=== PATIENT | male | born 1955 | race Caucasian/White ===

== ENCOUNTER 2022-02-05 15:03 | Inpatient (IN) ==
--- NOTE | 2022-02-05 15:14 | Emergency Department Note ---
Impression & Plan Intertrochanteric fracture of femur, Paroxysmal atrial fibrillation, CKD (chronic kidney disease), stage III ED Provider Note NAME: RADHA LLANES AGE: 66 SEX: M : 1955 ARRIVES VIA: Ambulance INFORMANT: Patient, ED PROVIDER(S): Peter Srivastava MD Chief Complaint: Fall, hip pain HPI: Patient presents after a fall and associated right hip pain from the fall. Patient states that he was bowling about 5 lanes and when he used his right foot has a plantar foot he just stopped all of a sudden instead of sliding slightly after his bowl and subsequently fell to the floor primarily striking his chest and his right hip. Patient is on Eliquis. Patient is a prior history of some esophageal cancer status post chemoradiation and surgery and the surgery was completed back in 2018. Patient states this is currently in remission. The patient drinks a couple beers a week and still smokes. Patient denies any cu rrent chest pain shortness of breath head or neck pain. The patient denies any numbness or weakness. The patient has had difficulty with moving his right leg and does have pain with doing so states is well localized to the proximal femur hip area. Patient was unable to walk. Patient did not receive any pain medication in route. ROS: See HPI for pertinent positives and negatives. A total of 10 systems were reviewed and otherwise negative. Past medical history: See below Surgical history: See below Social history: See below Physical Exam: GENERAL: NAD, wearing glasses, wearing a mask, non-toxic. EYE EXAM: Normal conjunctiva. PERRL, no anisocoria and EOM's grossly intact w/o pain. [OROPHARYNX: Moist mucus membranes. Edentulous maxilla. NECK: Supple, no nuchal rigidity, no adenopathy, non-tender. No signs of meningismus. LUNGS: Clear to auscultation. Normal chest wall mechanics. HEART: NSR, no MRG. ABDOMEN: Abdomen soft, non-tender, normo-active bowel sounds, no masses, no rebo und or guarding. BACK: No CVA TTP. SKIN: No rashes and no bruising. UPPER EXTREMITIES: Upper extremities are grossly normal. No TTP. LOWER EXTREMITIES: Discomfort with trying to raise the right lower extremity over the proximal anterior and lateral hip area, slightly shortened right lower extremity, neurovascular tact distally to DP, SP, tibialis nerves in the foot and with normal sensation. Good DP pulse. NEURO EXAM: A&O x3, cranial nerves II-XII grossly intact, normal speech, moves all 4 extremities but with decreased range of motion right lower extremity secondary to pain Differential diagnoses: Fracture, subluxation, dislocation, contusion, ligamentous injury, neurovascular, compartment syndrome, rhabdomyolysis, as well as other pathologies. Course: Patient was seen and evaluated the bedside. Full history physical exam was performed. EKG interpreted by me Sinus, rate 68, normal intervals, left axis deviation, no obvious ST elevations. Imaging Studies: See Below Cardiac monitoring: An order was placed for continuous cardiac monitoring. The monitor shows a rate of 72 with sinus rhythm. MDM: Patient was seen due to concern for fall and hip pain. Blood work was completed along with a right hip x-ray and CT of the head as the patient does take Eliquis given the fall. The patient has a white count that is normal with mild anemia with a hemoglobin 11.9. Mild thrombocytosis at 430. Kidney function with a creat of 1.5 CKD stage III. Urinalysis does not show any evidence of obvious infection. Covid negative. Patient's right hip does show an intertrochanteric fracture. I did speak the on-call orthopedist Dr. Royal. Patient will need a holiday from his [facility] prior to surgery per Dr. Royal and may consider surgery or Friday. I did speak with the on-call hospitalist TREE Arceo and the patient was admitted by Dr. Jean. CT of the head is negative. Past Med/Surg History Medical History BPH (benign prostatic hyperplasia) CKD (chronic kidney disease), stage III Dyslipidemia Esophageal cancer S/p chemo, radiation, esophagectomy HTN (hypertension) Paroxysmal atrial fibrillation Surgical History H/O esophagectomy History of bladder surgery Bladder tumor removed S/P repair of paraesophageal hernia Family History Mother Hypertension Lung cancer Sister Hypertension Social History Smoking Status: Current every day smoker Hx Alcohol Use: Yes Alcohol Intake Frequency: 2-3 x/Week Preferred Language: South Korean Feels Safe at Home: Yes Allergies Allergies Allergy/AdvReac Type Severity Reaction Status Date / Time No Known Drug Allergies Allergy ` Verified 02/05/22 17:27 Home Meds Home Medications Medication Instructions Recorded Confirmed amlodipine 2.5 mg tablet 2.5 mg PO DAILY 02/05/22 02/05/22 apixaban 2.5 mg tablet (Eliquis) 2.5 mg PO BID 02/05/22 02/05/22 diltiazem HCl 240 mg capsule,24 240 mg PO DAILY 02/05/22 02/05/22 hr,extended release (Tiadylt ER) lactobacillus combination no.4 3 0 mmu cells PO TID 02/05/22 02/05/22 billion cell capsule (Probiotic) qafskjds-clu-qwqsu acid 300 1 tab PO DAILY 02/05/22 02/05/22 mcg-lycopene 600 mcg-lutein 300 mcg tablet (Men 50 Plus Multivitamin) ondansetron HCl 4 mg tablet 4 mg PO Q8 PRN 02/05/22 02/05/22 saw palmetto 1,000 mg capsule 1,000 mg PO DAILY 02/05/22 02/05/22 sildenafil 100 mg tablet 100 mg PO DIRECTED PRN 02/05/22 02/05/22 Results & Data (ED) Vital Signs Vital Signs - 24 hr 02/05/22 14:56 Temperature 36.6 C Temperature Source Oral Pulse Rate 68 Pulse Rhythm Regular Pulse Strength Normal Respiratory Rate 18 Respiratory Effort / Characteristics Non-Labored Respiratory Depth Normal Respiratory Pattern Regular Blood Pressure 113/76 Blood Pressure Mean 88 Blood Pressure Position Lying Pulse Oximetry 98 Oxygen Delivery Method Room Air Sepsis Recent Fever Within 48 Hours No Sepsis New/Unexplained Change in Mental Status No Sepsis Action Taken by Nursing No Action Required Home Medications Current Medication List: was personally reviewed by me Laboratory Data Attestation: I reviewed the patient's lab results. Result diagrams: 02/05/22 15:30 02/05/22 15:30 Lab Results 02/05/22 02/05/22 02/05/22 Range/Units 15:30 15:30 15:30 WBC 9.68 (4.8-10.8) K/uL RBC 4.29 L (4.7-6.1) M/uL Hgb 11.9 L (14.0-18.0) g/dL Hct 36.4 L (42-52) % MCV 84.8 (80-100) fL MCH 27.7 (25-34) pg MCHC 32.7 (32-36) g/dL RDW Std Deviation 52.5 H (36.4-46.3) fL RDW Coeff of Lucita 17.2 H (11.5-14.5) % Plt Count 430 H (130-400) K/uL MPV 9.1 (7.4-10.4) fL Immature Gran % (Auto) 0.3 % Neut % (Auto) 67.7 % Lymph % (Auto) 16.7 % Wilson % (Auto) 10.5 % Eos % (Auto) 4.1 % Baso % (Auto) 0.7 % Neut # (Auto) 6.54 H (1.4-6.5) K/uL Lymph # (Auto) 1.62 (1.2-3.4) K/uL Wilson # (Auto) 1.02 H (0.11-0.59) K/uL Eos # (Auto) 0.40 (0-0.5) K/uL Baso # (Auto) 0.07 (0-0.2) K/uL Immature Gran # (Auto) 0.03 H (0.00-0.02) K/uL PT 10.8 (9.0-12.0) Seconds INR 1.0 (0.9-1.1) APTT 23.5 (21.0-31.0) Seconds PTT Ratio 0.9 Sodium 138 (136-145) mmol/L Potassium 3.6 (3.5-5.1) mmol/L Chloride 103 (98-107) mmol/L Carbon Dioxide 27 (21-32) mmol/L Anion Gap 8 (3-11) BUN 32 H (6-23) mg/dl Creatinine 1.56 H (0.6-1.4) mg/dl Est Cr Clr Drug Dosing 44.9 ml/min Est GFR ( Amer) 52.5 ml/min Est GFR (Non-Af Amer) 45.3 ml/min BUN/Creatinine Ratio 20.5 H (10-20) Glucose 94 (70-99(Fasting)) mg/dl Calcium 9.5 (8.5-10.1) mg/dl Total Bilirubin 0.5 (0.2-1.0) mg/dl AST 18 (13-39) U/L ALT 13 (7-52) U/L Alkaline Phosphatase 81 (34-104) U/L Total Protein 7.5 (6.0-8.3) gm/dl Albumin 4.3 (3.4-5.0) gm/dl Globulin 3.2 (2.5-4.0) gm/dl Albumin/Globulin Ratio 1.3 (0.9-2) Administered Medications Senna/Docusate Sodium (Docusate Sodium/Senna 50/8.6mg Tab) 2 tab PO HS JOSEPH Stop: 03/07/22 20:59 Last Admin: 02/05/22 22:01 Dose: 2 tab Documented by: [id number] Discontinued Medications Morphine Sulfate (Morphine Sulfate 2 Mg/Ml Carp) 2 mg IV Q1H PRN PRN Reason: Moderate Pain (Rating 3,4,5,6) Stop: 02/19/22 15:20 Last Admin: 02/05/22 17:20 Dose: 2 mg Documented by: [id number] Admin: 02/05/22 15:46 Dose: 2 mg Documented by: [id number] Oxycodone/Acetaminophen (Oxycodone/Acetaminophen 5mg/325mg Tab) 1 tab PO NOW STA Stop: 02/05/22 20:35 Last Admin: 02/05/22 21:10 Dose: 1 tab Documented by: [id number] Imaging Data Radiologist's Impression: Femur X-Ray 02/05/22 15:21 XR hip RT 2V w pelvis, XR femur RT 2V routine CLINICAL HISTORY: fall, short, immobile, RLE TECHNIQUE: 2 views of the right hip, 2 views of the right femur, and single frontal view of the pelvis were obtained. Comparison: None available at the time of this dictation. FINDINGS: There is an intratrochanteric fracture of the right femur which is minimally apex lateral angulated. The alignment is anatomic. Degenerative changes are seen in the hip joint. Soft tissue swelling is seen. Vascular calcifications are noted. IMPRESSION: Intratrochanteric fracture of the right femur. ACT 112: Negative or not required by law. Electronically signed by: Curly Crespo M.D. 02/05/2022 4:[address] 02/05/22 15:[address] DOSE: 1228.53 mGy.cm HISTORY: fall on eliquis TECHNIQUE: Multiaxial CT images of the head were performed without the use of intravenous contrast. Automated exposure control was utilized for this study. A dose lowering technique was utilized adhering to the principles of ALARA. Comparison: None. Findings: Trace fluid level within the left sphenoid sinus. The mastoid air cells are clear. The calvarium and skull base are intact. There is no mass, hematoma, midline shift, acute infarct. White matter hypodensity is nonspecific but suggestive of microvascular ischemic change. The ventricles and sulci demonstrate mild age-related involutional changes. Impression: 1. No acute intracranial abnormality. 2. Trace fluid level within the left sphenoid sinus. ACT 112: Negative or not required by law. Electronically signed by: Hakeem Talley M.D. 02/05/2022 4:56 PM Hip/Pelvis X-Ray 02/05/22 15:21 XR hip RT 2V w pelvis, XR femur RT 2V routine CLINICAL HISTORY: fall, short, immobile, RLE TECHNIQUE: 2 views of the right hip, 2 views of the right femur, and single frontal view of the pelvis were obtained. Comparison: None available at the time of this dictation. FINDINGS: There is an intratrochanteric fracture of the right femur which is minimally apex lateral angulated. The alignment is anatomic. Degenerative changes are seen in the hip joint. Soft tissue swelling is seen. Vascular calcifications are noted. IMPRESSION: Intratrochanteric fracture of the right femur. ACT 112: Negative or not required by law. Electronically signed by: Curly Crespo M.D. 02/05/2022 4:23 PM Discharge Plan Visit Data Chief Complaint: Hip Pain ED Provider: Peter Srivastava Discharge Problem: Intertrochanteric fracture of femur, Paroxysmal atrial fibrillation, CKD (chronic kidney disease), stage III Patient Disposition: Admitted As Inpatient Discharge Instructions Interventions: ED Discharge Assessment Last Done: 02/05/22 20:41
[2022-02-05 15:41] LABS: Basophils # (auto) 0.07 K/uL (0-0.2); Basophils % (auto) 0.7 %; Eosinophils % (auto) 4.1 %; Hematocrit (blood only) 36.4 % (42-52); Hemoglobin 11.9 g/dL (14.0-18.0); Immature Granulocytes # (auto) 0.03 K/uL (0.00-0.02); Immature Granulocytes % (auto) 0.3 %; Lymphocytes # (auto) 1.62 K/uL (1.2-3.4); Lymphocytes % (auto) 16.7 %; Mean Corpuscular Hemoglobin 27.7 pg (25-34); Mean Corpuscular Hgb Conc 32.7 g/dL (32-36); Mean Corpuscular Volume 84.8 fL (80-100); Mean Platelet Volume 9.1 fL (7.4-10.4); Monocytes # (auto) 1.02 K/uL (0.11-0.59); Monocytes % (auto) 10.5 %; Neutrophils # (auto) 6.54 K/uL (1.4-6.5); Neutrophils % (auto) 67.7 %; Platelet Count 430 K/uL (130-400); RDW Coefficient of Variation 17.2 % (11.5-14.5); RDW Standard Deviation 52.5 fL (36.4-46.3); Red Blood Count 4.29 M/uL (4.7-6.1); White Blood Count 9.68 K/uL (4.8-10.8)
[2022-02-05] MEDS: MoRPHine SULFATE 2 MG/ML CARP IV PRN ×2 (15:46→17:20)
[2022-02-05 16:00] LABS: Partial Thromboplastin Ratio 0.9; Partial Thromboplastin Time 23.5 Seconds (21.0-31.0); Prothrombin Time 10.8 Seconds (9.0-12.0)
[2022-02-05 16:02] LABS: Albumin Globulin Ratio 1.3 (0.9-2); Albumin Level 4.3 gm/dl (3.4-5.0); BUN Creatinine Ratio 20.5 (10-20); Bilirubin,Total 0.5 mg/dl (0.2-1.0); Calcium 9.5 mg/dl (8.5-10.1); Creatinine Clr Calc Pharmacy 44.9 ml/min; Est GFR (African American) 52.5 ml/min; Est GFR (Non-African American) 45.3 ml/min; Globulin 3.2 gm/dl (2.5-4.0); Potassium 3.6 mmol/L (3.5-5.1); Total Protein 7.5 gm/dl (6.0-8.3)
--- NOTE | 2022-02-05 16:17 | Electrocardiogram Report ---
Test Reason : Blood Pressure : / mmHG Vent. Rate : 068 BPM Atrial Rate : 068 BPM P-R Int : 146 ms QRS Dur : 090 ms QT Int : 414 ms P-R-T Axes : 052 -44 048 degrees QTc Int : 440 ms Poor data quality, interpretation may be adversely affected Sinus rhythm with Premature supraventricular complexes Left axis deviation Incomplete right bundle branch block Abnormal ECG When compared with ECG of 01-NOV-2013 14:03, Premature supraventricular complexes are now Present Confirmed by Drew Davenport ([id number]) on 02/05/2022 4:16:42 PM Referred By: REFERRED SELF Confirmed By:Simeon Davenport
--- NOTE | 2022-02-05 16:24 | XRay Report ---
XR hip RT 2V w pelvis, XR femur RT 2V routine CLINICAL HISTORY: fall, short, immobile, RLE TECHNIQUE: 2 views of the right hip, 2 views of the right femur, and single frontal view of the pelvi s were obtained. Comparison: None available at the time of this dictation. FINDINGS: There is an intratrochanteric fracture of the right femur which is minimally apex lateral angulated. The alignment is anatomic. Degenerative changes are seen in the hip joint. Soft tissue swelling is s een. Vascular calcifications are noted. IMPRESSION: Intratrochanteric fracture of the right femur. ACT 112: Negative or not required by law. Electronically signed by: Curly Crespo M.D. 02/05/2022 4:23 PM
--- NOTE | 2022-02-05 16:57 | CT Scan Report ---
HEAD CT NONCONTRAST CT DOSE: 1228.53 mGy.cm HISTORY: fall on eliquis TECHNIQUE: Multiaxial CT images of the head were performed without the use of intravenous contrast. A utomated exposure control was utilized for this study. A dose lowering technique was utilized adheri ng to the principles of ALARA. Comparison: None. Findings: Trace fluid level within the left sphenoid sinus. The mastoid air cells are clear. The calv arium and skull base are intact. There is no mass, hematoma, midline shift, acute infarct. White james er hypodensity is nonspecific but suggestive of microvascular ischemic change. The ventricles and sul ci demonstrate mild age-related involutional changes. Impression: 1. No acute intracranial abnormality. 2. Trace fluid level within the left sphenoid sinus. ACT 112: Negative or not required by law. Electronically signed by: Hakeem Talley M.D. 02/05/2022 4:56 PM
[2022-02-05 17:35] LABS: Appearance Urine Clear (Clear); Bilirubin Urine Negative (Negative); Blood Urine Negative (Negative); Color Urine Yellow; Glucose Urine UA Negative (Negative); Ketones Urine Negative (Negative); Leukocyte Esterase Urine Negative (Negative); Nitrite Urine Negative (Negative); Protein Urine Negative (Negative); Specific Gravity Urine 1.015 (1.000-1.030); Urobilinogen Urine Negative (Negative)
--- NOTE | 2022-02-05 19:15 | History & Physical Report ---
Date of Service February 05, 2022 Assessment & Plan (1) Intertrochanteric fracture of femur: Plan: Admit to [facility] Patient presenting after mechanical fall while bowling X-ray shows Intratrochanteric fracture of the right femur Ortho consult - due to patient being on Eliquis, tentatively planning for surgery in 02/07 Due to reports of shortness of breath "associated with atrial fibrillation" per patient, will obtain cardiology consult for preop evaluation EKG shows NSR with incomplete RBBB Echo 07/2020-EF 55 to 59%, mild aortic valve regurgitation, mild mitral regurgitation, mild tricuspid regurgitation. Stress test 2009 negative for inducible ischemia. CXR reviewed (2) Paroxysmal atrial fibrillation: Plan: Currently in NSR Rate controlled on diltiazem, anticoagulated on Eliquis. Hold Eliquis due to orthopedic surgery, resume at the discretion of orthopedics (3) HTN (hypertension): Plan: BP controlled, continue amlodipine and diltiazem (4) CKD (chronic kidney disease), stage III: Plan: Baseline creatinine runs in the high 1s Creatinine 1.56 today Monitor renal functions (5) DVT prophylaxis: Plan: SCDs due to upcoming surgery History of Present Illness Chief Complaint: Right hip pain Primary Care Provider: Padilla Loja DO 66-year-old male with PMH esophageal cancer s/p chemo, radiation, esophagectomy, paroxysmal atrial fibrillation anticoagulated on Eliquis, HTN, CKD stage III, BPH, GERD, and other problems to below who presents to the ED for evaluation of right hip pain after sustaining a fall. Patient reports that he was bowling this afternoon when his right foot got stuck and he fell to the ground. Patient denies striking his head or any associated loss of consciousness. Patient reports that he has been generally feeling fairly well recently. Does note some intermittent episodes of shortness of breath which he attributes to his atrial fibrillation. Patient denies chest pain. No lightheadedness, dizziness, diaphoresis, syncopal events. Denies any other recent illness, fevers, chills. No abdominal pain, nausea, vomiting, diarrhea. Denies urinary symptoms. In the ED, patient was found to have Intratrochanteric fracture of the right femur. Labs are unremarkable/at patient's baseline, patrick ent is hemodynamically stable. Patient received IV morphine for pain control. Allergies Allergy/AdvReac Type Severity Reaction Status Date / Time No Known Drug Allergies Allergy ` Verified 02/05/22 17:27 Home Medications Medication Instructions Recorded Confirmed Type amlodipine 2.5 mg tablet 2.5 mg PO DAILY 02/05/22 02/05/22 History apixaban 2.5 mg tablet (Eliquis) 2.5 mg PO BID 02/05/22 02/05/22 History diltiazem HCl 240 mg capsule,24 240 mg PO DAILY 02/05/22 02/05/22 History hr,extended release (Tiadylt ER) lactobacillus combination no.4 3 0 mmu cells PO TID 02/05/22 02/05/22 History billion cell capsule (Probiotic) ffqiaohn-pai-skyvt acid 300 1 tab PO DAILY 02/05/22 02/05/22 History mcg-lycopene 600 mcg-lutein 300 mcg tablet (Men 50 Plus Multivitamin) ondansetron HCl 4 mg tablet 4 mg PO Q8 PRN 02/05/22 02/05/22 History saw palmetto 1,000 mg capsule 1,000 mg PO DAILY 02/05/22 02/05/22 History sildenafil 100 mg tablet 100 mg PO DIRECTED PRN 02/05/22 02/05/22 History Past Med/Surg History Medical History BPH (benign prostatic hyperplasia) CKD (chronic kidney disease), stage III Dyslipidemia Esophageal cancer S/p chemo, radiation, esophagectomy HTN (hypertension) Paroxysmal atrial fibrillation Surgical History H/O esophagectomy History of bladder surgery Bladder tumor removed S/P repair of paraesophageal hernia Family History Mother Hypertension Lung cancer Sister Hypertension Social History Smoking Status: Current every day smoker Hx Alcohol Use: Yes Alcohol Intake Frequency: 2-3 x/Week Preferred Language: Swazi Feels Safe at Home: Yes Review of Systems Review of Systems: ROS per HPI, all other systems reviewed and negative Physical Exam Constitutional: + cachectic; no acute distress Eyes: PERRL, conjunctivae normal, anicteric sclerae ENMT: external ear and nose normal, oropharynx normal Respiratory: normal respiratory effort, lungs clear to auscultation Cardiovascular: Rate/Rhythm: regular rate and regular rhythm Vessels: normal peripheral pulses Extremities: no edema Gastrointestinal (Abdomen): normal bowel sounds, soft, nontender, no hepatosplenomegaly Musculoskeletal: Extremities: no cyanosis and no clubbing RLE shortened and externally rotated Skin: no rashes, warm and dry Neurologic: PERRL, EOMI, accommodation nl, no face palsy, no dysarthria Psychiatric: A+Ox3, euthymic affect Results & Data Results & Data ([facility]) Vital Signs (Past 12 Hours) Vital Signs Temp Pulse Pulse Resp BP BP Pulse Ox 02/05/22 16:56 70 18 134/77 99 02/05/22 14:56 36.6 C 68 18 113/76 98 Laboratory Results Short CBC 02/05/22 Range/Units 15:30 WBC 9.68 (4.8-10.8) K/uL Hgb 11.9 L (14.0-18.0) g/dL Hct 36.4 L (42-52) % Plt Count 430 H (130-400) K/uL BMP 02/05/22 15:30 Sodium 138 Potassium 3.6 Chloride 103 Carbon Dioxide 27 BUN 32 H Creatinine 1.56 H Glucose 94 Calcium 9.5 Liver Function 02/05/22 Range/Units 15:30 Total Bilirubin 0.5 (0.2-1.0) mg/dl AST 18 (13-39) U/L ALT 13 (7-52) U/L Alkaline Phosphatase 81 (34-104) U/L Albumin 4.3 (3.4-5.0) gm/dl Urine 02/05/22 Range/Units 17:00 Urine Color Yellow Urine Appearance Clear (Clear) Urine pH 6.0 (4.5-7.5) Ur Specific [place] 1.015 (1.000-1.030) Urine Protein Negative (Negative) Urine Glucose (UA) Negative (Negative) Diagnostic Findings Femur X-Ray 02/05/22 15:21 XR hip RT 2V w pelvis, XR femur RT 2V routine CLINICAL HISTORY: fall, short, immobile, RLE TECHNIQUE: 2 views of the right hip, 2 views of the right femur, and single frontal view of the pelvis were obtained. Comparison: None available at the time of this dictation. FINDINGS: There is an intratrochanteric fracture of the right femur which is minimally apex lateral angulated. The alignment is anatomic. Degenerative changes are seen in the hip joint. Soft tissue swelling is seen. Vascular calcifications are no carroll. IMPRESSION: Intratrochanteric fracture of the right femur. ACT 112: Negative or not required by law. Electronically signed by: Curly Crespo M.D. 02/05/2022 4:[address] 02/05/22 15:[address] DOSE: 1228.53 mGy.cm HISTORY: fall on eliquis TECHNIQUE: Multiaxial CT images of the head were performed without the use of intravenous contrast. Automated exposure control was utilized for this study. A dose lowering technique was utilized adhering to the principles of ALARA. Comparison: None. Findings: Trace fluid level within the left sphenoid sinus. The mastoid air cells are clear. The calvarium and skull base are intact. There is no mass, hematoma, midline shift, acute infarct. White matter hypodensity is nonspecific but suggestive of microvascular ischemic change. The ventricles and sulci demonstrate mild age-related involutional changes. Impression: 1. No acute intracranial abnormality. 2. Trace fluid level within the left sphenoid sinus. ACT 112: Negative or not required by law. Electronically signed by: Hakeem Talley M.D. 02/05/2022 4:56 PM Hip/Pelvis X-Ray 02/05/22 15:21 XR hip RT 2V w pelvis, XR femur RT 2V routine CLINICAL HISTORY: fall, short, immobile, RLE TECHNIQUE: 2 views of the right hip, 2 views of the right femur, and single frontal view of the pelvis were obtained. Comparison: None available at the time of this dictation. FINDINGS: There is an intratrochanteric fracture of the right femur which is minimally apex lateral angulated. The alignment is anatomic. Degenerative changes are seen in the hip joint. Soft tissue swelling is seen. Vascular calcifications are noted. IMPRESSION: Intratrochanteric fracture of the right femur. ACT 112: Negative or not required by law. Electronically signed by: Curly Crespo M.D. 02/05/2022 4:23 PM Code Status & VTE Plan VTE Prophylaxis Plan VTE Prophylaxis will be ordered: Yes Supervising Physician Co-Signing Physician Notes I have seen and examined the patient and have discussed the case with the provider above. I agree with the assessment and plan as stated. Please see separate attending addendum note. Ted, DO
[2022-02-05] MEDS ORDERED: oxyCODONE/ACETAMINOPHEN 5mg/325mg TAB PO STA (20:34)
--- NOTE | 2022-02-05 20:52 | Communication Note ---
Date of Service: February 05, 2022 ATTENDING ADDENDUM: 66 yo M presents with a R hip fracture s/p mechanical fall while bowling. He has a h/o esophageal cancer s/p surgery and XRT currently in remission but still smoking. He has paroxysmal atrial fibrillation on apixaban (should be dosed at 5mg BID instead of 2.5mg BID). He denies any chest pain in the last 6 months and reports a good functional status--bowls frequently and is able to climb a flight of stairs without issues typically. He does report some days where "it is an afib day" where he reports significant SOB with exertion, not able to walk 5 feet without becoming short of breath. He appears thin and underweight, however, weight has been stable for the past two years per record review. He currently reports that his pain is uncontrolled and I ordered a Percocet for him now. Physical exam reveals a thin man in NAD. He is mentating clearly and is having no increased respiratory distress. Cardiac auscultation reveals irregular rate and irregular rhythm. S1/2 heard. Lungs are clear to auscultation throughout. Abdomen is soft NTND. No peripheral edema. 2+DP pulses bilaterally. No sensation loss. BMP is normal with a creat of 1.56 which is at baseline. CBC reveals no leukocytosis and a mild anemia, 11.9/36.4, platelets mildly elevated to 430. UA is clear and covid screen is negative. CXR reveals no acute process. EKG with sinus rhythm with PVCs and an incomplete RBBB. 1. Right intertrochanteric fracture of femur: treat pain, NPO p MN, Ortho consult. Cardiology to see patient preoperatively with report of intermittent dyspnea on exertion. 2. PAF: he qualifies for the 5mg twice daily dose and this should be adjusted up at time of discharge. Currently held in light of upcoming operation. DO Ted
--- NOTE | 2022-02-05 20:53 | XRay Report ---
XR chest 1V portable HISTORY: Right hip fracture. Fall. Preop. COMPARISON: None. FINDINGS: No pneumothorax. Suture material within the right hilum and right midlung zone consistent w ith postoperative change. No evidence for pulmonary edema. The heart is borderline enlarged. Large re trocardiac density is nonspecific but favors a hiatus hernia. A few right basilar linear densities fa vor subsegmental atelectasis. No focal lung consolidations to suggest pneumonia. No evidence for pulm onary edema. Punctate calcified granuloma noted within the right upper lobe. Old, healed left-sided r ib fractures. IMPRESSION: 1. No acute process within the chest. 2. Large retrocardiac density favors a hiatus hernia. 3. Postoperative changes within the right lung. ACT 112: Negative or not required by law. Electronically signed by: Hakeem Talley M.D. 02/05/2022 8:50 PM
[2022-02-05] MEDS ORDERED: MAGNESIUM HYDROXIDE SUSP 30 ML UDC PO PRN (20:58)
[2022-02-05] MEDS ORDERED: NALOXONE HCL 0.4 MG/1 ML VIAL/CARP IV PRN (20:58)
[2022-02-05] MEDS ORDERED: bisacodyL 10 MG SUPP PR PRN (20:58)
[2022-02-05] MEDS ORDERED: ACETAMINOPHEN 325 MG TAB PO PRN (20:58)
[2022-02-05] MEDS ORDERED: oxyCODONE HCL IR 5 MG TAB (IMMEDIATE RELEASE) PO PRN (20:58)
[2022-02-05] MEDS: DOCUSATE SODIUM/SENNA 50/8.6MG TAB PO SCH (22:01)
[2022-02-06] MEDS ORDERED: ceFAZolin 2000MG 2,000 MG/15 ML SYR IV SCH (06:00)
[2022-02-06 07:43] LABS: Hematocrit (blood only) 35.3 % (42-52); Hemoglobin 11.6 g/dL (14.0-18.0); Mean Corpuscular Hemoglobin 27.7 pg (25-34); Mean Corpuscular Hgb Conc 32.9 g/dL (32-36); Mean Corpuscular Volume 84.2 fL (80-100); Mean Platelet Volume 8.7 fL (7.4-10.4); Platelet Count 437 K/uL (130-400); RDW Coefficient of Variation 17.2 % (11.5-14.5); RDW Standard Deviation 53.4 fL (36.4-46.3); Red Blood Count 4.19 M/uL (4.7-6.1); White Blood Count 11.79 K/uL (4.8-10.8)
[2022-02-06 08:03] LABS: BUN Creatinine Ratio 17.4 (10-20); Calcium 9.3 mg/dl (8.5-10.1); Creatinine Clr Calc Pharmacy 48.3 ml/min; Est GFR (African American) 71.4 ml/min; Est GFR (Non-African American) 61.6 ml/min
[2022-02-06] MEDS: amLODIPine BESYLATE 5 MG TAB PO SCH (08:15)
[2022-02-06] MEDS: dilTIAZem ER 120 MG CAPCR PO SCH (08:15)
[2022-02-06] MEDS: NICOTINE 21 MG/24 HR TDSY TD SCH (08:16)
--- NOTE | 2022-02-06 10:05 | Orthopedic Consultation ---
Date of Consultation February 06, 2022 Assessment & Plan (1) Intertrochanteric fracture of femur: Right intertrochanteric hip fracture. X-rays reviewed. I have discussed the case with Dr. Royal. Patient will require a right TFN. Patient is on Eliquis of which he states his last dose was yesterday morning. Creatinine was 1.5 yesterday and today is 1.2. I have discussed the case also with anesthesia. Tentatively, he will be at least 36 hours after his last Eliquis dose. We will put him on the operating room schedule for today. I will further discuss this with medicine service and unless they feel he is not stable for surgery, we will plan on doing the surgery today. Surgery has been discussed with the patient in detail. History of Present Illness Reason for Consultation: Right intertrochanteric hip fracture Attending Physician: Gianluca Ryan MD History of Present Illness 66-year-old male with PMH esophageal cancer s/p chemo, radiation, esophagectomy, paroxysmal atrial fibrillation anticoagulated on Eliquis, HTN, CKD stage III, BPH, GERD, who was brought to the emergency room after [place] a bowling alley. Patient states that he was bowling with friends. At the beginning of the first frame and the third game, the patient states that he went to roll the ball for his turn when his right foot got caught. He stumbled and fell onto his right side hitting his right lateral hip. He states he had immediate pain in the hip and groin and pain that radiated down into his knee. He was unable to ambulate well because of the pain. He denies hitting his head. He denies losing consciousness. There was no shortness of breath, chest pain, lightheadedness prior to or after the fall. He was brought to the emergency room where he was seen by the staff. X-rays were taken and was found that he had an intertrochanteric hip fracture of the right hip. He was admitted by the [facility] service and we have been asked to take care of his right hip fracture. Currently he is awake and alert and appears comfortable. He states his pain is controlled at rest however when he tries to move his right hip he has excruciating pain in the right hip and groin. He denies pain anywhere else at this time. Allergies Allergy/AdvReac Type Severity Reaction Status Date / Time No Known Drug Allergies Allergy ` Verified 02/05/22 17:27 Home Medications Medication Instructions Recorded Confirmed Type amlodipine 2.5 mg tablet 2.5 mg PO DAILY 02/05/22 02/05/22 History apixaban 2.5 mg tablet (Eliquis) 2.5 mg PO BID 02/05/22 02/05/22 History diltiazem HCl 240 mg capsule,24 240 mg PO DAILY 02/05/22 02/05/22 History hr,extended release (Tiadylt ER) lactobacillus combination no.4 3 0 mmu cells PO TID 02/05/22 02/05/22 History billion cell capsule (Probiotic) znfnwdyc-opj-prrmo acid 300 1 tab PO DAILY 02/05/22 02/05/22 History mcg-lycopene 600 mcg-lutein 300 mcg tablet (Men 50 Plus Multivitamin) ondansetron HCl 4 mg tablet 4 mg PO Q8 PRN 02/05/22 02/05/22 History saw palmetto 1,000 mg capsule 1,000 mg PO DAILY 02/05/22 02/05/22 History sildenafil 100 mg tablet 100 mg PO DIRECTED PRN 02/05/22 02/05/22 History Patient History Medical History BPH (benign prostatic hyperplasia) CKD (chronic kidney disease), stage III Dyslipidemia Esophageal cancer S/p chemo, radiation, esophagectomy HTN (hypertension) Paroxysmal atrial fibrillation Surgical History H/O esophagectomy History of bladder surgery Bladder tumor removed S/P repair of paraesophageal hernia Family History Mother Hypertension Lung cancer Sister Hypertension Social History Smoking Status: Current every day smoker Cigarettes Per Day: 10; Second Hand Exposure: No; Do You Dip or Chew Tobacco: No; Tobacco Cessation Education Requested by Patient: No Hx Alcohol Use: Yes Alcohol Intake Frequency: 2-3 x/Week Hx Substance Use: No Preferred Language: Thai Communication Ability: Effective Fishing Vessel Mate Required: No Beliefs That Will Affect Care: None Current Living Situation: Alone Other Information That Helps Us Care for You: No Feels Safe at Home: Yes Safety Concerns: Feels Safe At This Time Assistive Devices: Glasses Physical Exam Physical Exam: Patient is a 66-year-old white male. Alert and oriented x3. No acute distress. Pleasant and cooperative. On examination of his right lower extremity, it is shortened and externally rotated compared to the right. No range of motion is done at this time of the right hip or knee secondary to hip fracture. His knee is nontender on palpation. There is no effusion that I can see. He has good range of motion of his right ankle and toes. Sensation is intact. He is mildly tender on p alpation of the lateral hip at this time. Left lower extremity is unaffected and range of motion is within normal limits. Upper extremities are unaffected and range of motion of the shoulders, elbows, and wrists are within normal limits. Nontender. Distal pulses are equal laterally of the upper and lower extremities. There is no gross motor or sensory loss seen at this time. Results & Data ([facility]) Vital Signs (Past 12 Hours) Vital Signs Temp Pulse Resp BP Pulse Ox 02/06/22 07:53 36.9 C 86 16 165/87 H 93 Laboratory Results Laboratory Results WBC 11.79 K/uL (4.8-10.8) H 02/06/22 07:24 RBC 4.19 M/uL (4.7-6.1) L 02/06/22 07:24 Hgb 11.6 g/dL (14.0-18.0) L 02/06/22 07:24 Hct 35.3 % (42-52) L 02/06/22 07:24 MCV 84.2 fL (80-100) 02/06/22 07:24 MCH 27.7 pg (25-34) 02/06/22 07:24 MCHC 32.9 g/dL (32-36) 02/06/22 07:24 RDW Std Deviation 53.4 fL (36.4-46.3) H 02/06/22 07:24 RDW Coeff of Lucita 17.2 % (11.5-14.5) H 02/06/22 07:24 Plt Count 437 K/uL (130-400) H 02/06/22 07:24 MPV 8.7 fL (7.4-10.4) 02/06/22 07:24 Immature Gran % (Auto) 0.3 % 02/05/22 15:30 Neut % (Auto) 67.7 % 02/05/22 15:30 Lymph % (Auto) 16.7 % 02/05/22 15:30 [place] % (Auto) 10.5 % 02/05/22 15:30 Eos % (Auto) 4.1 % 02/05/22 15:30 Baso % (Auto) 0.7 % 02/05/22 15:30 Neut # (Auto) 6.54 K/uL (1.4-6.5) H 02/05/22 15:30 Lymph # (Auto) 1.62 K/uL (1.2-3.4) 02/05/22 15:30 [place] # (Auto) 1.02 K/uL (0.11-0.59) H 02/05/22 15:30 Eos # (Auto) 0.40 K/uL (0-0.5) 02/05/22 15:30 Baso # (Auto) 0.07 K/uL (0-0.2) 02/05/22 15:30 Immature Gran # (Auto) 0.03 K/uL (0.00-0.02) H 02/05/22 15:30 PT 10.8 Seconds (9.0-12.0) 02/05/22 15:30 INR 1.0 (0.9-1.1) 02/05/22 15:30 APTT 23.5 Seconds (21.0-31.0) 02/05/22 15:30 PTT Ratio 0.9 02/05/22 15:30 Sodium 136 mmol/L (136-145) 02/06/22 07:24 Potassium 4.0 mmol/L (3.5-5.1) 02/06/22 07:24 Chloride 102 mmol/L (98-107) 02/06/22 07:24 Carbon Dioxide 27 mmol/L (21-32) 02/06/22 07:24 Anion Gap 7 (3-11) 02/06/22 07:24 BUN 21 mg/dl (6-23) 02/06/22 07:24 Creatinine 1.21 mg/dl (0.6-1.4) D 02/06/22 07:24 Est Cr Clr Drug Dosing 48.3 ml/min 02/06/22 07:24 Est GFR ( Amer) 71.4 ml/min 02/06/22 07:24 Est GFR (Non-Af Amer) 61.6 ml/min 02/06/22 07:24 BUN/Creatinine Ratio 17.4 (10-20) 02/06/22 07:24 Glucose 99 mg/dl (70-99(Fasting)) 02/06/22 07:24 Calcium 9.3 mg/dl (8.5-10.1) 02/06/22 07:24 Total Bilirubin 0.5 mg/dl (0.2-1.0) 02/05/22 15:30 AST 18 U/L (13-39) 02/05/22 15:30 ALT 13 U/L (7-52) 02/05/22 15:30 Alkaline Phosphatase 81 U/L (34-104) 02/05/22 15:30 Total Protein 7.5 gm/dl (6.0-8.3) 02/05/22 15:30 Albumin 4.3 gm/dl (3.4-5.0) 02/05/22 15:30 Globulin 3.2 gm/dl (2.5-4.0) 02/05/22 15:30 Albumin/Globulin Ratio 1.3 (0.9-2) 02/05/22 15:30 Urine Color Yellow 02/05/22 17:00 Urine Appearance Clear (Clear) 02/05/22 17:00 Urine pH 6.0 (4.5-7.5) 02/05/22 17:00 Ur Specific [place] 1.015 (1.000-1.030) 02/05/22 17:00 Urine Protein Negative (Negative) 02/05/22 17:00 Urine Glucose (UA) Negative (Negative) 02/05/22 17:00 Urine Ketones Negative (Negative) 02/05/22 17:00 Urine Blood Negative (Negative) 02/05/22 17:00 Urine Nitrite Negative (Negative) 02/05/22 17:00 Urine Bilirubin Negative (Negative) 02/05/22 17:00 Urine Urobilinogen Negative (Negative) 02/05/22 17:00 Ur Leukocyte Esterase Negative (Negative) 02/05/22 17:00 SARS-CoV-2, RNA, NAAT NEGATIVE (NEGATIVE) 02/05/22 17:47 Blood Type A Positive 02/06/22 07:24 Antibody Screen NEGATIVE 02/06/22 07:24 Impressions Femur X-Ray 02/05/22 15:21 XR hip RT 2V w pelvis, XR femur RT 2V routine CLINICAL HISTORY: fall, short, immobile, RLE TECHNIQUE: 2 views of the right hip, 2 views of the right femur, and single frontal view of the pelvis were obtained. Comparison: None available at the time of this dictation. FINDINGS: There is an intratrochanteric fracture of the right femur which is minimally apex lateral angulated. The alignment is anatomic. Degenerative changes are seen in the hip joint. Soft tissue swelling is seen. Vascular calcifications are noted. IMPRESSION: Intratrochanteric fracture of the right femur. ACT 112: Negative or not required by law. Electronically signed by: Curly Crespo M.D. 02/05/2022 4:[address] 02/05/22 15:[address] DOSE: 1228.53 mGy.cm HISTORY: fall on eliquis TECHNIQUE: Multiaxial CT images of the head were performed without the use of intravenous contrast. Automated exposure control was utilized for this study. A dose lowering technique was utilized adhering to the principles of ALARA. Comparison: None. Findings: Trace fluid level within the left sphenoid sinus. The mastoid air cells are clear. The calvarium and skull base are intact. There is no mass, hematoma, midline shift, acute infarct. White matter hypodensity is nonspecific but suggestive of microvascular ischemic change. The ventricles and sulci demonstrate mild age-related involutional changes. Impression: 1. No acute intracranial abnormality. 2. Trace fluid level within the left sphenoid sinus. ACT 112: Negative or not required by law. Electronically signed by: Hakeem Talley M.D. 02/05/2022 4:56 PM Hip/Pelvis X-Ray 02/05/22 15:21 XR hip RT 2V w pelvis, XR femur RT 2V routine CLINICAL HISTORY: fall, short, immobile, RLE TECHNIQUE: 2 views of the right hip, 2 views of the right femur, and single frontal view of the pelvis were obtained. Comparison: None available at the time of this dictation. FINDINGS: There is an intratrochanteric fracture of the right femur which is minimally apex lateral angulated. The alignment is anatomic. Degenerative changes are seen in the hip joint. Soft tissue swelling is seen. Vascular calcifications are noted. IMPRESSION: Intratrochanteric fracture of the right femur. ACT 112: Negative or not required by law. Electronically signed by: Curly Crespo M.D. 02/05/2022 4:23 PM Chest X-Ray 02/05/22 19:06 XR chest 1V portable HISTORY: Right hip fracture. Fall. Preop. COMPARISON: None. FINDINGS: No pneumothorax. Suture material within the right hilum and right midlung zone consistent with postoperative change. No evidence for pulmonary edema. The heart is borderline enlarged. Large retrocardiac density is nonspecific but favors a hiatus hernia. A few right basilar linear densities favor subsegmental atelectasis. No focal lung consolidations to suggest pneumonia. No evidence for pulmonary edema. Punctate calcified granuloma noted within the right upper lobe. Old, healed left-sided rib fractures. IMPRESSION: 1. No acute process within the chest. 2. Large retrocardiac density favors a hiatus hernia. 3. Postoperative changes within the right lung. ACT 112: Negative or not required by law. Electronically signed by: Hakeem Talley M.D. 02/05/2022 8:50 PM (1) Intertrochanteric fracture of femur Encounter type: initial encounter Fracture alignment: nondisplaced Fracture type: closed Laterality: right Qualified Code(s): S72.144A - Nondisplaced intertrochanteric fracture of right femur, initial encounter for closed fracture
--- NOTE | 2022-02-06 12:09 | Anesthesiology Consultation ---
Date of Service February 06, 2022 Assessment & Plan Chart Review Chart Review: Pending: Refer to Additional Notes / Consult section (awaiting ordered cardiology evaluation) Consults Requested none History Surgery Operation Date: 02/06/22 14:05 Proposed Procedures p Right Troch Femoral Nail - Pastor Royal DO Height/Weight Height: 6 ft Weight: 57.6 kg Allergies Allergy/AdvReac Type Severity Reaction Status Date / Time No Known Drug Allergies Allergy ` Verified 02/05/22 17:27 Medications Home Medications Medication Instructions Recorded Confirmed Last Taken amlodipine 2.5 mg tablet 2.5 mg PO DAILY 02/05/22 02/05/22 02/05/22 09:00 apixaban 2.5 mg tablet (Eliquis) 2.5 mg PO BID 02/05/22 02/05/22 02/05/22 09:00 diltiazem HCl 240 mg capsule,24 240 mg PO DAILY 02/05/22 02/05/22 02/05/22 09:00 hr,extended release (Tiadylt ER) lactobacillus combination no.4 3 0 mmu cells PO TID 02/05/22 02/05/22 Unknown billion cell capsule (Probiotic) zsfflbyk-kss-zidyw acid 300 1 tab PO DAILY 02/05/22 02/05/22 Unknown mcg-lycopene 600 mcg-lutein 300 mcg tablet (Men 50 Plus Multivitamin) ondansetron HCl 4 mg tablet 4 mg PO Q8 PRN 02/05/22 02/05/22 Unknown saw palmetto 1,000 mg capsule 1,000 mg PO DAILY 02/05/22 02/05/22 Unknown sildenafil 100 mg tablet 100 mg PO DIRECTED PRN 02/05/22 02/05/22 Unknown Active Medications Generic Name Dose Route Start Last Admin Trade Name Freq PRN Reason Stop Dose Admin Amlodipine Besylate 2.5 mg 02/06/22 09:00 02/06/22 08:15 Amlodipine Besylate 5 Mg Tab PO 03/08/22 08:59 2.5 mg DAILY JOSEPH Administration Diltiazem HCl 240 mg 02/06/22 09:00 02/06/22 08:15 Diltiazem Er 120 Mg Capcr PO 03/08/22 08:59 240 mg DAILY JOSEPH Administration Miscellaneous 1 ea 02/06/22 08:59 02/06/22 08:23 Remove Nicoderm Patch N/A 03/08/22 08:58 Not Given DAILY@[id number] JOSEPH Nicotine 21 mg 02/06/22 09:00 02/06/22 08:16 Nicotine 21 Mg/24 Hr Tdsy TD 03/08/22 08:59 21 mg QAM JOSEPH Administration Oxycodone HCl 5 mg 02/05/22 20:58 02/06/22 06:08 Oxycodone Hcl Ir 5 Mg Tab (Immediate Release) PO 02/19/22 20:57 5 mg Q4H PRN Administration MODERATE Pain (4,5,6) & Pre PT Senna/Docusate Sodium 2 tab 02/05/22 21:00 02/05/22 22:01 Docusate Sodium/Senna 50/8.6mg Tab PO 03/07/22 20:59 2 tab HS JOSEPH Administration Past Medical History Medical History BPH (benign prostatic hyperplasia) CKD (chronic kidney disease), stage III Dyslipidemia Esophageal cancer S/p chemo, radiation, esophagectomy HTN (hypertension) Paroxysmal atrial fibrillation Past Family History Family History Mother Hypertension Lung cancer Sister Hypertension Past Surgical History Surgical History H/O esophagectomy History of bladder surgery Bladder tumor removed S/P repair of paraesophageal hernia Social History Smoking Status: Current every day smoker tobacco type: cigarettes Smoking cigarettes per day: 10 Do You Dip or Chew Tobacco: No Hx Alcohol Use: Yes alcohol intake frequency: a few times a week Hx Substance Use: No substance use type: does not use Physical Exam Vital Signs Last Vital Signs Temp 36.9 C 02/06/22 07:53 Pulse 86 02/06/22 07:53 Resp 16 02/06/22 07:53 BP 165/87 H 02/06/22 07:53 Pulse Ox 93 02/06/22 07:53 Testing Laboratory Results 02/06/22 07:24 02/06/22 07:24 PT 10.8 Seconds (9.0-12.0) 02/05/22 15:30 INR 1.0 (0.9-1.1) 02/05/22 15:30 APTT 23.5 Seconds (21.0-31.0) 02/05/22 15:30 Urine Color Yellow 02/05/22 17:00 Urine Appearance Clear (Clear) 02/05/22 17:00 Urine pH 6.0 (4.5-7.5) 02/05/22 17:00 Ur Specific [place] 1.015 (1.000-1.030) 02/05/22 17:00 Urine Protein Negative (Negative) 02/05/22 17:00 Urine Glucose (UA) Negative (Negative) 02/05/22 17:00 Urine Ketones Negative (Negative) 02/05/22 17:00 Urine Nitrite Negative (Negative) 02/05/22 17:00 Ur Leukocyte Esterase Negative (Negative) 02/05/22 17:00 Blood Type A Positive 02/06/22 07:24 Antibody Screen NEGATIVE 02/06/22 07:24 Echocardiogram Date: 07/18/20 EF: 55 Valvular Disease: + AI (mild) and + MR (mild)
[2022-02-06] MEDS: MoRPHine SULFATE 2 MG/ML CARP IV PRN ×2 (12:18→16:01)
--- NOTE | 2022-02-06 12:54 | Cardiology Consultation ---
Date of Consultation February 06, 2022 Assessment & Plan (1) Preoperative cardiovascular examination: (2) Paroxysmal atrial fibrillation: 66-year-old male with prior history of esophageal carcinoma, chronic ongoing cigarette smoking, hypertension, and paroxysmal atrial fibrillation presents a fter mechanical fall with hip fracture. He is seen in preoperative cardiac evaluation. He describes a stable degree of exertional shortness of breath that he feels is not changed within the last year. October,, he underwent laparoscopic repair of a paraesophageal hernia and tolerated it well from a cardiac perspective. EKG is unchanged compared to his outpatient baseline dating back to August,. Patient stable from a cardiac perspective to proceed with surgical intervention for his intertrochanteric fracture from a cardiac perspective without further cardiac testing with an estimated low risk of perioperative cardiac application. Agree with holding Eliquis pending OR. It is noted that he is on both amlodipine and diltiazem as an outpatient and these will be continued. History of Present Illness Attending Physician: Gianluca Ryan MD History of Present Illness Shaun Mireles is a 66 year old male seen in cardiology consultation per the request of Dr Jean for preoperative assessment. Patient presented via the emergency room yesterday afternoon after sustaining a mechanical fall. He was bowling and his right foot got stuck, he fell, and has been found to have an intertrochanteric fracture of the right femur. He is seen by the undersigned in room 355. He is comfortable with the exception of right hip/leg pain. The patient follows with Dr. Yan Godinez of [facility] cardiology in [place]. He had been seen in preoperative cardiology evaluation back in August,, prior to paraesophageal hernia repair with noted findings of paroxysmal atrial fibrillation, dyslipidemia, hypertension. The patient subsequently underwent laparoscopic paraesophageal hernia repair at [facility] in October. 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 He was found to be heterozygous for a pathogenic variant of BRCA1 as part of the [employer] study. Patient describes a stable degree of exertional shortness of breath that he states has not changed in the last year. Allergies Allergy/AdvReac Type Severity Reaction Status Date / Time No Known Drug Allergies Allergy ` Verified 02/05/22 17:27 Home Medications Medication Instructions Recorded Confirmed Type amlodipine 2.5 mg tablet 2.5 mg PO DAILY 02/05/22 02/05/22 History apixaban 2.5 mg tablet (Eliquis) 2.5 mg PO BID 02/05/22 02/05/22 History diltiazem HCl 240 mg capsule,24 240 mg PO DAILY 02/05/22 02/05/22 History hr,extended release (Tiadylt ER) lactobacillus combination no.4 3 0 mmu cells PO TID 02/05/22 02/05/22 History billion cell capsule (Probiotic) ukcwppoo-sot-ugorg acid 300 1 tab PO DAILY 02/05/22 02/05/22 History mcg-lycopene 600 mcg-lutein 300 mcg tablet (Men 50 Plus Multivitamin) ondansetron HCl 4 mg tablet 4 mg PO Q8 PRN 02/05/22 02/05/22 History saw palmetto 1,000 mg capsule 1,000 mg PO DAILY 02/05/22 02/05/22 History sildenafil 100 mg tablet 100 mg PO DIRECTED PRN 02/05/22 02/05/22 History Patient History Medical History BPH (benign prostatic hyperplasia) CKD (chronic kidney disease), stage III Dyslipidemia Esophageal cancer S/p chemo, radiation, esophagectomy HTN (hypertension) Paroxysmal atrial fibrillation Surgical History H/O esophagectomy History of bladder surgery Bladder tumor removed S/P repair of paraesophageal hernia Family History Mother Hypertension Lung cancer Sister Hypertension Social History Smoking Status: Current every day smoker Cigarettes Per Day: 10; Second Hand Exposure: No; Do You Dip or Chew Tobacco: No; Tobacco Cessation Education Requested by Patient: No Hx Alcohol Use: Yes Alcohol Intake Frequency: 2-3 x/Week Hx Substance Use: No Preferred Language: Japanese Communication Ability: Effective Leadership Development Consultant Required: No Beliefs That Will Affect Care: None Current Living Situation: Alone Other Information That Helps Us Care for You: No Feels Safe at Home: Yes Safety Concerns: Feels Safe At This Time Assistive Devices: None Review of Systems Review of Systems: All systems reviewed & are unremarkable except as noted in HPI & below Physical Exam Physical Exam: Temp Pulse Resp BP Pulse Ox 36.9 C 86 16 165/87 H 93 02/06/22 07:53 02/06/22 07:53 02/06/22 07:53 02/06/22 07:53 02/06/22 07:53 Constitutional: WD/WN, vitals as above Respiratory: normal respiratory effort, lungs clear to auscultation Cardiovascular: RRR, no murmur, no edema Gastrointestinal (Abdomen): normal bowel sounds, soft, nontender, no hepatosplenomegaly Neurologic: PERRL, EOMI, accommodation nl, no face palsy, no dysarthria Results & Data ([facility]) Vital Signs (Past 12 Hours) Vital Signs Temp Pulse Resp BP Pulse Ox 02/06/22 07:53 36.9 C 86 16 165/87 H 93 Laboratory Results Cardiac Enzymes 02/05/22 Range/Units 15:30 AST 18 (13-39) U/L Coagulation 02/05/22 Range/Units 15:30 PT 10.8 (9.0-12.0) Seconds APTT 23.5 (21.0-31.0) Seconds CBC 02/05/22 02/06/22 Range/Units 15:30 07:24 WBC 9.68 11.79 H (4.8-10.8) K/uL RBC 4.29 L 4.19 L (4.7-6.1) M/uL Hgb 11.9 L 11.6 L (14.0-18.0) g/dL Hct 36.4 L 35.3 L (42-52) % Plt Count 430 H 437 H (130-400) K/uL Neut # (Auto) 6.54 H (1.4-6.5) K/uL Lymph # (Auto) 1.62 (1.2-3.4) K/uL [place] # (Auto) 1.02 H (0.11-0.59) K/uL Eos # (Auto) 0.40 (0-0.5) K/uL Baso # (Auto) 0.07 (0-0.2) K/uL Comprehensive Metabolic Panel 02/05/22 02/06/22 Range/Units 15:30 07:24 Sodium 138 136 (136-145) mmol/L Potassium 3.6 4.0 (3.5-5.1) mmol/L Chloride 103 102 (98-107) mmol/L Carbon Dioxide 27 27 (21-32) mmol/L BUN 32 H 21 (6-23) mg/dl Creatinine 1.56 H 1.21 D (0.6-1.4) mg/dl Glucose 94 99 (70-99(Fasting)) mg/dl Calcium 9.5 9.3 (8.5-10.1) mg/dl AST 18 (13-39) U/L ALT 13 (7-52) U/L Alkaline Phosphatase 81 (34-104) U/L Total Protein 7.5 (6.0-8.3) gm/dl Albumin 4.3 (3.4-5.0) gm/dl Diagnostic Findings EKG performed 02/05/2022 and reviewed independently revealed sinus rhythm at 60 bpm with occasional PACs, incomplete right bundle branch block, poor R wave pro gression lead V2, unchanged compared to prior outpatient tracing performed within [facility] August,. Summary of transthoracic echocardiogram performed 08/11/2020, [facility] Joel wn: LVEF 50 to 59% right ventricular enlargement noted, with qualitative normal right ventricular systolic function Moderate left atrial argument Mild aortic valve regurgitation Mild mitral gravitation Mild tricuspid regurgitation Trivial anterior pericardial effusion Mild aortic root margin Mild enlargement of proximal ascending aorta
[2022-02-06] MEDS ORDERED: HYDROmorphone INJ 0.5 MG/0.5 ML SYR ONE (13:47)
[2022-02-06] MEDS: HYDROmorphone INJ 0.5 MG/0.5 ML SYR IV PRN (13:48)
--- NOTE | 2022-02-06 19:07 | Hospitalist Progress Note ---
Date of Service February 06, 2022 Assessment & Plan (1) Intertrochanteric fracture of femur: Plan: (1) Intertrochanteric fracture of femur: Plan: Patient presenting after mechanical fall while bowling Admitting X-ray shows Intratrochanteric fracture of the right femur Ortho consult - due to patient being on Eliquis, tentatively planning for surgery in 02/07 Card evaluated patient pre-op. Admitting EKG shows NSR with incomplete RBBB Echo 07/2020-EF 55 to 59%, mild aortic valve regurgitation, mild mitral regurgitation, mild tricuspid regurgitation. Stress test 2010 negative for inducible ischemia. CXR reviewed (2) Paroxysmal atrial fibrillation: Plan: Currently in NSR Rate controlled on diltiazem, anticoagulated on Eliquis. Hold Eliquis due to orthopedic surgery, resume at the discretion of orthopedics (3) HTN (hypertension): Plan: BP controlled, continue amlodipine and diltiazem (4) CKD (chronic kidney disease), stage III: Plan: Baseline creatinine runs in the high 1s Creatinine WNL Monitor renal functions as appropriate. (5) DVT prophylaxis: Plan: SCDs due to upcoming surgery, resume eliquis upon discretion of ortho after OR repain of Rt femur. Admission and Anticipated Discharge Date Admission Date: February 05, 2022 Subjective Patient seen and examined at bedside as a follow-up of intertrochanteric fracture of right femur. Patient lying in bed, on room air, in mild distress due to pain with slight movement at right hip. Patient denies fever/headache/chills/chest pain/pal pitations/belly pain/other review of symptoms. Patient remains n.p.o. for the repair of right femur today. Physical Exam Physical Exam: GENERAL: Alert and oriented x3. NAD, on RA. Lean and thin appearance/Cachectic HEENT: No pallor, no icterus. Pupils equal, round and reactive to light. Oral mucosa moist. NECK: No JVD, no neck masses. HEART: S1 and S2 heard. Regular rate and rhythm. No murmur, no gallop. RESPIRATORY SYSTEM: Normal AP diameter. No accessory muscle use. No wheezing, no crackles. ABDOMEN: Soft, bowel sounds present, nontender, no distention. CENTRAL NERVOUS SYSTEM: No facial droop. Speech is clear. Obeys simple commands. Moves extremities. EXTREMITIES: No edema, no erythema seen. Results & Data Results & Data ([facility]) Vital Signs (Past 12 Hours) Vital Signs Temp Pulse Resp BP Pulse Ox 02/06/22 16:09 36.8 C 89 16 145/76 H 91 02/06/22 07:53 36.9 C 86 16 165/87 H 93 (1) Intertrochanteric fracture of femur Encounter type: initial encounter Fracture alignment: nondisplaced Fracture type: closed Laterality: right Qualified Code(s): S72.144A - Nondisplaced intertrochanteric fracture of right femur, initial encounter for closed fracture
[2022-02-06] MEDS ORDERED: MEPERIDINE HCL 25 MG/ML CARP/VIAL IV PRN (19:35)
[2022-02-06] MEDS ORDERED: ONDANSETRON INJ 2 MG/ML 2 ML VIAL IV PRN (19:35)
[2022-02-06] MEDS ORDERED: LABETALOL HCL IV 5 MG/ML 20ML IV PRN (19:35)
[2022-02-06] MEDS ORDERED: ATROPINE SULFATE 0.1 MG/ML 10ML SYR IV PRN (19:35)
[2022-02-06] MEDS ORDERED: HYDROmorphone INJ 1 MG/ML SYRINGE IV PRN (19:35)
[2022-02-06] MEDS ORDERED: fentaNYL citrate 100 MCG/2 ML VIAL IV PRN (19:35)
[2022-02-06] MEDS ORDERED: PHENYLEPHRINE 100MCG/ML 5ML SYR IV PRN (19:35)
[2022-02-06] MEDS ORDERED: ePHEDrine sulfate 50 MG/ML AMP IV PRN (19:35)
--- NOTE | 2022-02-06 19:43 | History & Physical Bridge Note ---
Date of Service February 06, 2022 History & Physical Bridge Note I have examined the patient, reviewed the History & Physical and in the interval since the performance of the History & Physical I have noted the following changes of clinical significance: no changes noted
[2022-02-06] MEDS ORDERED: fentaNYL citrate 100 MCG/2 ML VIAL ONE (19:47)
[2022-02-06] MEDS ORDERED: PHENYLEPHRINE HCL 10 MG/ML VIAL ONE (20:23)
[2022-02-06] MEDS ORDERED: DEXAMETHASONE SOD INJ 4 MG/ML VIAL ONE (20:28)
[2022-02-06] MEDS ORDERED: ONDANSETRON INJ 2 MG/ML 2 ML VIAL ONE (20:30)
[2022-02-06] MEDS ORDERED: PROPOFOL IV EMULSION 10 MG/ML 20 ML VIAL IV ONE (20:31)
[2022-02-06] MEDS ORDERED: LIDOCAINE 2% 2 ML VIAL/AMP(20MG/ML) INFIL ONE (20:31)
[2022-02-06] MEDS ORDERED: BUPIVACAINE 0.5 % 5 MG/1 ML MPF 30ML VIAL ONE (20:31)
[2022-02-06] MEDS ORDERED: ceFAZolin 330 MG/ML 1 GM VIAL ONE (20:31)
[2022-02-06] MEDS ORDERED: SUCCINYLCHOLINE CHLORIDE 20 MG/ML 10 ML VIAL IV ONE (20:43)
--- NOTE | 2022-02-06 21:11 | Post Operative Brief Note ---
Immediate Post Op Note v1 Date of Surgery February 06, 2022 Pre & Post Diagnosis Operation Date: 02/06/22 14:05 Pre-Op Diagnosis: Intertrochanteric fracture of right femur with displacement Post-Op Diagnosis: Intertrochanteric fracture of right femur with displacement I identified the patient and participated in the time-out.: Yes Procedure Operation Date: 02/06/22 14:05 Actual Procedures p open reduction internal fixation right displaced intertrochanteric hip fracture with Synthes trochanteric fixation nail 12 mm x 130 degrees x 235 mm, 11 mm x 105 mm helical blade and 5 mm x 40 mm locking screw. (Right) - Pastor Royal DO Surgeon Pastor Royal DO Workforce Development Program Director Julio Zheng PA-C Estimated Blood Loss 15 Findings Consistent with Post-Op Diagnosis Anesthesia Type General Regional Complications none Disposition Accompanied Patient To Recovery: No
--- NOTE | 2022-02-06 21:25 | Fluoroscopy Report ---
INTRAOPERATIVE RADIOGRAPHS CLINICAL HISTORY: Open reduction and internal fixation of the right femur. Fluoroscopy time: 47 seconds. FINDINGS: 4 spot fluoroscopic views of the right proximal femur are compared to radiographs dated 01/16. There has been intertrochanteric and intramedullary nail fixation of a comminuted intertrocha nteric fracture with mormonism of near-anatomic alignment. A single cortical lag screw transfixes t he distal end of the nail. The orthopedic hardware appears intact. IMPRESSION: Intraoperative images from open reduction and internal fixation of the right proximal fem ur as above. Electronically signed by: Mir Lubin M.D. 02/06/2022 9:24 PM
--- NOTE | 2022-02-06 22:33 | Anesthesiology Progress Note ---
Date of Service February 06, 2022 Anesthesia Post Procedure Vital Signs Vital Signs: Temp Pulse Pulse Resp BP Pulse Ox 02/06/22 21:55 36.8 C 73 20 136/67 93 02/06/22 21:45 78 18 134/71 94 02/06/22 21:35 73 14 145/72 H 98 02/06/22 21:25 82 20 149/95 H 94 02/06/22 21:15 37.1 C 84 18 134/74 98 02/06/22 21:10 36.8 C 72 20 129/81 95 02/06/22 16:09 36.8 C 89 16 145/76 H 91 02/06/22 07:53 36.9 C 86 16 165/87 H 93 Pain Intensity Right Hip: Pain Intensity: 2 Transfer of Care Handoff Completed per policy Notes Mental Status: alert / awake / arousable Patient Amnestic to Procedure: Yes Nausea / Vomiting: adequately controlled Pain: adequately controlled Airway Patency, RR, SpO2: stable & adequate BP & HR: stable & adequate Hydration State: stable & adequate Anesthetic Complications: no major complications apparent and Pt Satisfied with anesthetic care Notes: The patient has a history of esophageal cancer with a noted hiatal hernia on imaging. The patient had a RSI. He was easily intubated but was noted to have phlegm and then multiple chunks of food in a "pouch" near his esophagus. Multiple chunks of food were removed with forceps. The procedure continued uneventfully. At the end of the surgery the patient was again noted to have multiple chunks of food that were suctioned. The patient was awake and breathing spontaneously prior to extubation. He did not appear to aspirate during the procedure. He has been awake and stable in PACU with SpO2 in the mid to high 90s. His lung sound are similar to his baseline upon auscultation.
[2022-02-06] MEDS: DOCUSATE SODIUM/SENNA 50/8.6MG TAB PO SCH (22:47)
[2022-02-06] MEDS: SODIUM CHLORIDE 0.9% 1000ML 1,000 ML IV SCH (23:31)
[2022-02-07] MEDS: ceFAZolin 1000MG 1,000 MG/7.5 ML SYR IV SCH ×2 (04:50→12:07)
--- NOTE | 2022-02-07 06:14 | Operative Report (OR) ---
DATE OF PROCEDURE: 02/06/2022. PREOPERATIVE DIAGNOSIS: Right displaced intertrochanteric hip fracture. POSTOPERATIVE DIAGNOSIS: Right displaced intertrochanteric hip fracture. PROCEDURE: Open reduction and internal fixation of right displaced intertrochanteric hip fracture with a Synthes 12 mm x 130-degree titanium fixation nail, 235 mm in length, 11 x 105 mm helical blade, and a 5 x 40 mm locking screw. SURGEON: Pastor Royal DO SCIENTIFIC TECHNICAL WRITER: Julio Zheng PA-C, who was present for patient positioning, sterile prep and drape, management of retractors and instruments. He was present through the critical portions of the case including wound closure, application of sterile dressing and transport of the patient to recovery. ANESTHESIA: General, regional. SPECIMENS: None. DRAINS: None. COMPLICATIONS: None. BLOOD LOSS: 15 mL. PERTINENT HISTORY: This is a 66-year-old gentleman who sustained a mechanical fall. When he was bowling, his slide foot did not slide, he tumbled landing directly on to his right hip, suffering an intertrochanteric displaced fracture. He was unable to ambulate. Transported to [facility]. He was admitted to the hospitalist service. He was evaluated and optimized for surgery and he was scheduled for surgery as indicated. All potential risks, benefits, complications, alternatives, rehab potential for incomplete relief of symptoms, need for further surgery, DVT, PE, , persistent pain, swelling, scarring, weakness, neurovascular injury, wound complications, hardware failure, nonunion, malunion, bone fracture were discussed with the patient. The patient decided to proceed with the procedure as indicated. DESCRIPTION OF PROCEDURE: The patient was transferred to the operative suite. The proper site was identified. The consent was reviewed, the patient was then administered sedation and spinal anesthetic. Once appropriate, the patient then transferred to the fracture table where the lower extremity was placed in fracture table traction and the nonoperative leg was placed in the well leg umaña. All bony prominences were properly padded and protected. The padded post was placed in the peroneal and the patient was positioned appropriately. Next the left leg was placed on traction and reduction of the fracture was performed under fluoroscopic control. Next the operative hip was then sterilely prepped and draped in the usual fashion. Next a 10-blade scalpel incision was used to make an incision proximal to the greater trochanter. The incision was deep in the subcutaneous tissue and fascia and the tip of the greater trochanter was then palpated followed by placement of a guide pin under fluoroscopic control driven into the greater trochanter down to the level of the less trochanter. This was confirmed in AP and lateral projections followed by placement of the proximal reamer over the cannulated guide pin. Next the reamer was then removed using the soft tissue protector, which was also removed. Next the ball tip guide wagner was placed into the proximal femur under fluoroscopic control confirmed with AP and lateral fluoroscope projections. Next the trochanteric nail was then passed over the guide wagner into the femur, the guide wagner was removed and then under fluoroscopic control appropriate level of the femoral nail was then placed in AP projections. Next the targeting device was then fixed to the driving handle and 10-blade scalpel incision was made in the lateral aspect of the thigh. Next the tissue protector and cannulated guide system was then passed into the soft tissue until it was securely fixed against a lateral aspect of the femoral cortex. This was also confirmed under C-arm. Next the guide pin for the spiral blade was driven into the lateral aspect of the femur confirming this with AP lateral projections until the guide pin was in the center of the femoral neck and head approximately 5 mm from the subcortical bone of the femur. Next the spiral blade was then measured and then the lateral cortex was then drilled with the cortex reamer followed by use of the triple reamer with the depth stop set at appropriate depth. In this case a 105 mm spiral blade was then inserted over the cannulated guide wagner under fluoroscopic control. This was seated appropriately then traction was reduced from the limb and the fracture was then gently compressed and then locked proximally with the flexible screwdriver. Next the spiral blade was then disengaged from its insertion handle, insertion handle was then removed and the guide pin was removed from the femoral neck and head. Next the lateral targeting arm was used to insert the distal locking screw. First a 10-blade scalpel incision was made in the lateral aspect of the thigh, captured drill sleeves were then tamped gently to the lateral aspect of the femoral cortex then the locking screw hole was then drilled, measured and then an appropriate length screw was placed to lock the distal aspect of the nail. Next targeting sleeves were then removed. The insertion arm was then removed from the nail and final x-rays were obtained in AP and lateral projections. All incisions were then copiously irrigated with sterile normal saline. The proximal gluteus fascia was then closed using interrupted #1 Vicryl, the dermis was closed using buried interrupted 2-0 Vicryl sutures in all three incisions and the skin was then closed using skin maryse. A sterile compressive dressing consisting of Xeroform gauze, sterile 4 x 4's and Tegaderm was applied. The patient was then awakened and taken to recovery in stable condition. Job ID: [id number] [facility]ENTER[facility]iz
[2022-02-07] MEDS: MoRPHine SULFATE 2 MG/ML CARP IV PRN (07:32)
--- NOTE | 2022-02-07 08:08 | XRay Report ---
XR hip RT min 2V CLINICAL HISTORY: Post-Operative implant position TECHNIQUE: 2 views of the right hip were obtained. Comparison: None available at the time of this dictation. FINDINGS: Patient is status post right medullary nail placement. Surgical maryse and subcutaneous emphysema ar e seen. The alignment is anatomic. Moderate degenerative changes are seen. A bony fragment remains ne ar the articulation. No soft tissue abnormality is seen. IMPRESSION: Expected post surgical appearance status post medullary wagner placement. Femoral neck fracture is in an atomic alignment. ACT 112: Negative or not required by law. Electronically signed by: Curly Crespo M.D. 02/07/2022 8:07 AM
[2022-02-07 08:27] LABS: Hematocrit (blood only) 31.3 % (42-52); Hemoglobin 10.4 g/dL (14.0-18.0); Mean Corpuscular Hemoglobin 27.5 pg (25-34); Mean Corpuscular Hgb Conc 33.2 g/dL (32-36); Mean Corpuscular Volume 82.8 fL (80-100); Mean Platelet Volume 8.9 fL (7.4-10.4); Platelet Count 449 K/uL (130-400); RDW Coefficient of Variation 17.1 % (11.5-14.5); RDW Standard Deviation 51.8 fL (36.4-46.3); Red Blood Count 3.78 M/uL (4.7-6.1); White Blood Count 17.77 K/uL (4.8-10.8)
[2022-02-07] MEDS: amLODIPine BESYLATE 5 MG TAB PO SCH (08:40)
[2022-02-07] MEDS: dilTIAZem ER 120 MG CAPCR PO SCH (08:41)
[2022-02-07] MEDS: NICOTINE 21 MG/24 HR TDSY TD SCH (08:41)
[2022-02-07 09:01] LABS: BUN Creatinine Ratio 20.8 (10-20); Calcium 8.7 mg/dl (8.5-10.1); Creatinine Clr Calc Pharmacy 48.7 ml/min; Est GFR (African American) 72.1 ml/min; Est GFR (Non-African American) 62.2 ml/min; Magnesium 1.7 mg/dl (1.7-2.4); Potassium 4.3 mmol/L (3.5-5.1)
[2022-02-07] MEDS: HYDROmorphone INJ 0.5 MG/0.5 ML SYR IV PRN (11:09)
--- NOTE | 2022-02-07 11:14 | Orthopedic Progress Note ---
Date of Service February 07, 2022 Assessment & Plan (1) Intertrochanteric fracture of femur: Plan: POD 1 Leukocytosis- asymptomatic currently. Likely secondary to surgical stress. PT/OT protocols. WBAT. DVT prophylaxis - Ok to restart Eliquis tonight if ok with Med Service Pain management as written Admission and Anticipated Discharge Date Admission Date: February 05, 2022 Subjective POD 1 Pt sitting up in bed. Doing OT session. No complaints. Comfortable. Pain controlled at rest. Physical Exam Physical Exam: Dressings C/D/I. Calves soft, NT. NV intact. Toes mobile. Results & Data ([facility]) Vital Signs (Past 12 Hours) Vital Signs Temp Pulse Pulse Resp BP Pulse Ox 02/07/22 08:32 37.0 C 81 16 127/78 90 02/07/22 03:27 36.8 C 80 16 116/63 91 02/07/22 01:20 36.7 C 73 19 133/74 91 02/07/22 00:19 36.9 C 77 18 131/84 95 02/06/22 23:33 36.6 C 77 18 149/73 H 93 Laboratory Results Laboratory Results WBC 17.77 K/uL (4.8-10.8) H 02/07/22 07:27 RBC 3.78 M/uL (4.7-6.1) L 02/07/22 07:27 Hgb 10.4 g/dL (14.0-18.0) L 02/07/22 07:27 Hct 31.3 % (42-52) L 02/07/22 07:27 MCV 82.8 fL (80-100) 02/07/22 07:27 MCH 27.5 pg (25-34) 02/07/22 07:27 MCHC 33.2 g/dL (32-36) 02/07/22 07:27 RDW Std Deviation 51.8 fL (36.4-46.3) H 02/07/22 07:27 RDW Coeff of Lucita 17.1 % (11.5-14.5) H 02/07/22 07:27 Plt Count 449 K/uL (130-400) H 02/07/22 07:27 MPV 8.9 fL (7.4-10.4) 02/07/22 07:27 Immature Gran % (Auto) 0.3 % 02/05/22 15:30 Neut % (Auto) 67.7 % 02/05/22 15:30 Lymph % (Auto) 16.7 % 02/05/22 15:30 [place] % (Auto) 10.5 % 02/05/22 15:30 Eos % (Auto) 4.1 % 02/05/22 15:30 Baso % (Auto) 0.7 % 02/05/22 15:30 Neut # (Auto) 6.54 K/uL (1.4-6.5) H 02/05/22 15:30 Lymph # (Auto) 1.62 K/uL (1.2-3.4) 02/05/22 15:30 [place] # (Auto) 1.02 K/uL (0.11-0.59) H 02/05/22 15:30 Eos # (Auto) 0.40 K/uL (0-0.5) 02/05/22 15:30 Baso # (Auto) 0.07 K/uL (0-0.2) 02/05/22 15:30 Immature Gran # (Auto) 0.03 K/uL (0.00-0.02) H 02/05/22 15:30 PT 10.8 Seconds (9.0-12.0) 02/05/22 15:30 INR 1.0 (0.9-1.1) 02/05/22 15:30 APTT 23.5 Seconds (21.0-31.0) 02/05/22 15:30 PTT Ratio 0.9 02/05/22 15:30 Sodium 132 mmol/L (136-145) L 02/07/22 07:27 Potassium 4.3 mmol/L (3.5-5.1) 02/07/22 07:27 Chloride 100 mmol/L (98-107) 02/07/22 07:27 Carbon Dioxide 23 mmol/L (21-32) 02/07/22 07:27 Anion Gap 9 (3-11) 02/07/22 07:27 BUN 25 mg/dl (6-23) H 02/07/22 07:27 Creatinine 1.20 mg/dl (0.6-1.4) 02/07/22 07:27 Est Cr Clr Drug Dosing 48.7 ml/min 02/07/22 07:27 Est GFR ( Amer) 72.1 ml/min 02/07/22 07:27 Est GFR (Non-Af Amer) 62.2 ml/min 02/07/22 07:27 BUN/Creatinine Ratio 20.8 (10-20) H 02/07/22 07:27 Glucose 191 mg/dl (70-99(Fasting)) H 02/07/22 07:27 Calcium 8.7 mg/dl (8.5-10.1) 02/07/22 07:27 Magnesium 1.7 mg/dl (1.7-2.4) 02/07/22 07:27 Total Bilirubin 0.5 mg/dl (0.2-1.0) 02/05/22 15:30 AST 18 U/L (13-39) 02/05/22 15:30 ALT 13 U/L (7-52) 02/05/22 15:30 Alkaline Phosphatase 81 U/L (34-104) 02/05/22 15:30 Total Protein 7.5 gm/dl (6.0-8.3) 02/05/22 15:30 Albumin 4.3 gm/dl (3.4-5.0) 02/05/22 15:30 Globulin 3.2 gm/dl (2.5-4.0) 02/05/22 15:30 Albumin/Globulin Ratio 1.3 (0.9-2) 02/05/22 15:30 25-OH Vitamin D Total 30.6 ng/ml (30-100) 02/07/22 07:27 Urine Color Yellow 02/05/22 17:00 Urine Appearance Clear (Clear) 02/05/22 17:00 Urine pH 6.0 (4.5-7.5) 02/05/22 17:00 Ur Specific [place] 1.015 (1.000-1.030) 02/05/22 17:00 Urine Protein Negative (Negative) 02/05/22 17:00 Urine Glucose (UA) Negative (Negative) 02/05/22 17:00 Urine Ketones Negative (Negative) 02/05/22 17:00 Urine Blood Negative (Negative) 02/05/22 17:00 Urine Nitrite Negative (Negative) 02/05/22 17:00 Urine Bilirubin Negative (Negative) 02/05/22 17:00 Urine Urobilinogen Negative (Negative) 02/05/22 17:00 Ur Leukocyte Esterase Negative (Negative) 02/05/22 17:00 SARS-CoV-2, RNA, NAAT NEGATIVE (NEGATIVE) 02/05/22 17:47 Blood Type A Positive 02/06/22 07:24 Antibody Screen NEGATIVE 02/06/22 07:24 Hip X-Ray 02/06/22 22:29 XR hip RT min 2V CLINICAL HISTORY: Post-Operative implant position TECHNIQUE: 2 views of the right hip were obtained. Comparison: None available at the time of this dictation. FINDINGS: Patient is status post right medullary nail placement. Surgical maryse and subcutaneous emphysema are seen. The alignment is anatomic. Moderate degenerative changes are seen. A bony fragment remains near the articulation. No soft tissue abnormality is seen. IMPRESSION: Expected post surgical appearance status post medullary wagner placement. Femoral neck fracture is in anatomic alignment. ACT 112: Negative or not required by law. Electronically signed by: Curly Crespo M.D. 02/07/2022 8:07 AM (1) Intertrochanteric fracture of femur Encounter type: initial encounter Fracture alignment: nondisplaced Fracture type: closed Laterality: right Qualified Code(s): S72.144A - Nondisplaced intertrochanteric fracture of right femur, initial encounter for closed fracture
[2022-02-07] MEDS: SODIUM CHLORIDE 0.9% 1000ML 1,000 ML IV SCH (12:06)
--- NOTE | 2022-02-07 14:52 | Hospitalist Progress Note ---
Date of Service February 07, 2022 Assessment & Plan (1) Intertrochanteric fracture of femur: Plan: (1) Intertrochanteric fracture of femur: Plan: Patient presenting after mechanical fall while bowling Admitting X-ray shows Intratrochanteric fracture of the right femur Ortho consult -status post ORIF and nailing 02/06/2022. Follow-up with Ortho in 10 to 14 days after surgery. Resume Eliquis from evening, okay from orthopedics point of view. Postoperative Hb fairly at baseline, continue to monitor. (2) Paroxysmal atrial fibrillation: Plan: Currently in NSR Rate controlled on diltiazem, anticoagulated on Eliquis. Resume Eliquis from evening. (3) HTN (hypertension): Plan: BP controlled, continue amlodipine and diltiazem (4) CKD (chronic kidney disease), stage III: Plan: Baseline creatinine runs in the high 1s Creatinine WNL Monitor renal functions as appropriate. (5) DVT prophylaxis: Plan: Eliquis from evening. Disposition: Likely DC tomorrow to [facility]. Admission and Anticipated Discharge Date Admission Date: February 05, 2022 Subjective Patient seen and examined at bedside as a follow-up of intertrochanteric fracture of femur status post repair 02/06/2022. Patient sitting up in chair, on room air, NAD, no new acute events overnight. Patient reports right hip pain under control. Patient reports eating okay. Patient reports moving gas but no bowel movement after surgery. Patient denies any fever/headache/chills/chest pain/palpitation/other review of symptoms. Physical Exam Physical Exam: GENERAL: Alert and oriented x3. NAD, on RA. Lean and thin appearance HEENT: No pallor, no icterus. Pupils equal, round and reactive to light. Oral mucosa moist. NECK: No JVD, no neck masses. HEART: S1 and S2 heard. Regular rate and rhythm. No murmur, no gallop. RESPIRATORY SYSTEM: Normal AP diameter. No accessory muscle use. No wheezing, no crackles. ABDOMEN: Soft, bowel sounds present, nontender, no distention. CENTRAL NERVOUS SYSTEM: No facial droop. Speech is clear. Obeys simple commands. Moves extremities. EXTREMITIES: No edema, no erythema seen. Rt hip with clean dressing without soakage noted. Distal NV status wnl. Results & Data Results & Data ([facility]) Vital Signs (Past 12 Hours) Vital Signs Temp Pulse Pulse Pulse Resp BP Pulse Ox 02/07/22 11:18 37.0 C 71 16 129/68 94 02/07/22 08:32 37.0 C 81 16 127/78 90 02/07/22 03:27 36.8 C 80 16 116/63 91 (1) Intertrochanteric fracture of femur Encounter type: initial encounter Fracture alignment: nondisplaced Fracture type: closed Laterality: right Qualified Code(s): S72.144A - Nondisplaced intertrochanteric fracture of right femur, initial encounter for closed fracture
--- NOTE | 2022-02-07 15:29 | Cardiology Progress Note ---
Date of Service February 07, 2022 Assessment & Plan (1) Intertrochanteric fracture of femur: (2) Paroxysmal atrial fibrillation: (3) HTN (hypertension): Plan: Postop day 1 ORIF hip fracture BP well controlled Hemoglobin stable Continue outpatient amlodipine, diltiazem. Eliquis 2.5 mg twice daily to resume this evening. Admission and Anticipated Discharge Date Admission Date: February 05, 2022 Subjective Patient seen in cardiology follow-up. Denies chest discomfort, sitting upright in bedside chair. Postoperative pain controlled. Physical Exam Constitutional: WD/WN, vitals as above Respiratory: normal respiratory effort, lungs clear to auscultation Cardiovascular: RRR, no murmur, no edema Gastrointestinal (Abdomen): normal bowel sounds, soft, nontender, no hepato splenomegaly Neurologic: PERRL, EOMI, accommodation nl, no face palsy, no dysarthria Results & Data ([facility]) Vital Signs (Past 12 Hours) Vital Signs Temp Pulse Pulse Pulse Resp BP Pulse Ox 02/07/22 11:18 37.0 C 71 16 129/68 94 02/07/22 08:32 37.0 C 81 16 127/78 90 02/07/22 03:27 36.8 C 80 16 116/63 91 Laboratory Results CBC 02/07/22 Range/Units 07:27 WBC 17.77 H (4.8-10.8) K/uL RBC 3.78 L (4.7-6.1) M/uL Hgb 10.4 L (14.0-18.0) g/dL Hct 31.3 L (42-52) % Plt Count 449 H (130-400) K/uL Comprehensive Metabolic Panel 02/07/22 Range/Units 07:27 Sodium 132 L (136-145) mmol/L Potassium 4.3 (3.5-5.1) mmol/L Chloride 100 (98-107) mmol/L Carbon Dioxide 23 (21-32) mmol/L BUN 25 H (6-23) mg/dl Creatinine 1.20 (0.6-1.4) mg/dl Glucose 191 H (70-99(Fasting)) mg/dl Calcium 8.7 (8.5-10.1) mg/dl (1) Intertrochanteric fracture of femur Encounter type: initial encounter Fracture alignment: nondisplaced Fracture type: closed Laterality: right Qualified Code(s): S72.144A - Nondisplaced intertrochanteric fracture of right femur, initial encounter for closed fracture
[2022-02-07] MEDS: oxyCODONE HCL IR 5 MG TAB (IMMEDIATE RELEASE) PO PRN (20:53)
[2022-02-07] MEDS: APIXABAN 2.5 MG TAB PO SCH (20:54)
[2022-02-07] MEDS: DOCUSATE SODIUM/SENNA 50/8.6MG TAB PO SCH (20:54)
[2022-02-08 07:28] LABS: Hematocrit (blood only) 29.9 % (42-52); Hemoglobin 9.8 g/dL (14.0-18.0); Mean Corpuscular Hemoglobin 27.5 pg (25-34); Mean Corpuscular Hgb Conc 32.8 g/dL (32-36); Mean Corpuscular Volume 83.8 fL (80-100); Mean Platelet Volume 8.9 fL (7.4-10.4); Platelet Count 442 K/uL (130-400); RDW Coefficient of Variation 17.3 % (11.5-14.5); RDW Standard Deviation 53.2 fL (36.4-46.3); Red Blood Count 3.57 M/uL (4.7-6.1); White Blood Count 22.22 K/uL (4.8-10.8)
[2022-02-08 07:52] LABS: BUN Creatinine Ratio 23.9 (10-20); Calcium 8.8 mg/dl (8.5-10.1); Creatinine Clr Calc Pharmacy 53.6 ml/min; Est GFR (Non-African American) 69.9 ml/min; Magnesium 1.8 mg/dl (1.7-2.4); Potassium 4.4 mmol/L (3.5-5.1)
[2022-02-08] MEDS: APIXABAN 2.5 MG TAB PO SCH (08:02)
[2022-02-08] MEDS: dilTIAZem ER 120 MG CAPCR PO SCH (08:02)
[2022-02-08] MEDS: amLODIPine BESYLATE 5 MG TAB PO SCH (08:02)
[2022-02-08] MEDS: NICOTINE 21 MG/24 HR TDSY TD SCH (08:03)
--- NOTE | 2022-02-08 08:52 | Orthopedic Progress Note ---
Date of Service February 08, 2022 Assessment & Plan (1) Intertrochanteric fracture of femur: Plan: POD 1 Leukocytosis- asymptomatic currently. Slight increase from yesterday. AFeb. As per Med Service. PT/OT protocols. WBAT. DVT prophylaxis - Eliquis bid, SCD's Pain management as written DC planning - Pt accepted to [facility]. Admission and Anticipated Discharge Date Admission Date: February 05, 2022 Subjective POD 2 Pt sitting up in bed. States having pain with getting in and out of bed. Pain controlled at rest. No other complaints. Physical Exam Physical Exam: Dressings C/D/I. Calves soft, NT. NV intact. Toes mobile. Results & Data ([facility]) Vital Signs (Past 12 Hours) Vital Signs Temp Pulse Resp BP Pulse Ox 02/08/22 08:17 36.5 C 87 16 145/69 H 91 02/07/22 23:52 36.7 C 70 15 115/76 93 Laboratory Results 02/08/22 02/08/22 02/08/22 Range/Units 08:23 06:46 06:46 WBC 22.22 H (4.8-10.8) K/uL RBC 3.57 L (4.7-6.1) M/uL Hgb 9.8 L (14.0-18.0) g/dL Hct 29.9 L (42-52) % MCV 83.8 (80-100) fL MCH 27.5 (25-34) pg MCHC 32.8 (32-36) g/dL RDW Std Deviation 53.2 H (36.4-46.3) fL RDW Coeff of Lucita 17.3 H (11.5-14.5) % Plt Count 442 H (130-400) K/uL MPV 8.9 (7.4-10.4) fL Sodium 132 L (136-145) mmol/L Potassium 4.4 (3.5-5.1) mmol/L Chloride 99 (98-107) mmol/L Carbon Dioxide 25 (21-32) mmol/L Anion Gap 8 (3-11) BUN 26 H (6-23) mg/dl Creatinine 1.09 (0.6-1.4) mg/dl Est Cr Clr Drug Dosing 53.6 ml/min Est GFR ( Amer) 81.0 ml/min Est GFR (Non-Af Amer) 69.9 ml/min BUN/Creatinine Ratio 23.9 H (10-20) Glucose 127 H (70-99(Fasting)) mg/dl Calcium 8.8 (8.5-10.1) mg/dl Magnesium 1.8 (1.7-2.4) mg/dl 25-OH Vitamin D Total (30-100) ng/ml Procalcitonin Pending 02/07/22 02/07/22 Range/Units 07:27 07:27 WBC (4.8-10.8) K/uL RBC (4.7-6.1) M/uL Hgb (14.0-18.0) g/dL Hct (42-52) % MCV (80-100) fL MCH (25-34) pg MCHC (32-36) g/dL RDW Std Deviation (36.4-46.3) fL RDW Coeff of Lucita (11.5-14.5) % Plt Count (130-400) K/uL MPV (7.4-10.4) fL Sodium 132 L (136-145) mmol/L Potassium 4.3 (3.5-5.1) mmol/L Chloride 100 (98-107) mmol/L Carbon Dioxide 23 (21-32) mmol/L Anion Gap 9 (3-11) BUN 25 H (6-23) mg/dl Creatinine 1.20 (0.6-1.4) mg/dl Est Cr Clr Drug Dosing 48.7 ml/min Est GFR ( Amer) 72.1 ml/min Est GFR (Non-Af Amer) 62.2 ml/min BUN/Creatinine Ratio 20.8 H (10-20) Glucose 191 H (70-99(Fasting)) mg/dl Calcium 8.7 (8.5-10.1) mg/dl Magnesium 1.7 (1.7-2.4) mg/dl 25-OH Vitamin D Total 30.6 (30-100) ng/ml Procalcitonin (1) Intertrochanteric fracture of femur Encounter type: initial encounter Fracture alignment: nondisplaced Fracture type: closed Laterality: right Qualified Code(s): S72.144A - Nondisplaced intertrochanteric fracture of right femur, initial encounter for closed fracture
--- NOTE | 2022-02-08 10:45 | XRay Report ---
XR chest 1V portable CLINICAL HISTORY: Abnormal breath sounds. Evaluate for pneumonia.. COMPARISON STUDY: 02/05/2022 TECHNIQUE: 1 view of the chest FINDINGS: Single frontal view of the chest demonstrates the heart size to be mildly enlarged. There is a large soft tissue density seen posterior to the heart and projecting into the right lung. While the finding s may represent a hiatal hernia, the presence of a pericardial cyst would also be in the differential diagnosis. The lungs are otherwise clear of alveolar opacities. There is no evidence for pleural eff usion. There is no evidence for vascular congestion. There is no acute osseous pathology. IMPRESSION: 1. No acute cardiopulmonary disease. 2. There is again evidence for a large hiatal hernia versus a pericardial cyst. PA and lateral radiog raphs are recommended for further evaluation. ACT 112: Negative or not required by law. Electronically signed by: Gildardo Markham M.D. 02/08/2022 10:43 AM
[2022-02-08] MEDS ORDERED: FUROSEMIDE INJ 20 MG/2 ML VIAL IV ONE (11:19)
--- NOTE | 2022-02-08 14:12 | Discharge Summary ---
Date of Service February 08, 2022 Admission HPI Per Admitting Provider 66-year-old male with PMH esophageal cancer s/p chemo, radiation, esophagectomy, paroxysmal atrial fibrillation anticoagulated on Eliquis, HTN, CKD stage III, BPH, GERD, and other problems to below who presents to the ED for evaluation of right hip pain after sustaining a fall. Patient reports that he was bowling this afternoon when his right foot got stuck and he fell to the ground. Patient denies striking his head or any associated loss of consciousness. Patient reports that he has been generally feeling fairly well recently. Does note some intermittent episodes of shortness of breath which he attributes to his atrial fibrillation. Patient denies chest pain. No lightheadedness, dizziness, diaphoresis, syncopal events. Denies any other recent illness, fevers, chills. No abdominal pain, nausea, vomiting, diarrhea. Denies urinary symptoms. In the ED, patient was found to have Intratrochanteric fracture of the right femur. Labs are unremarkable/at patient's baseline, patient is hemodynamically stable. Patient received IV morphine for pain control. Admission Exam Per Admitting Provider Constitutional: + cachectic; no acute distress Eyes: PERRL, conjunctivae normal, anicteric sclerae ENMT: external ear and nose normal, oropharynx normal Respiratory: normal respiratory effort, lungs clear to auscultation Cardiovascular: Rate/Rhythm: regular rate and regular rhythm Vessels: normal peripheral pulses Extremities: no edema Gastrointestinal (Abdomen): normal bowel sounds, soft, nontender, no hepatosplenomegaly Musculoskeletal: Extremities: no cyanosis and no clubbing RLE shortened and externally rotated Skin: no rashes, warm and dry Neurologic: PERRL, EOMI, accommodation nl, no face palsy, no dysarthria Psychiatric: A+Ox3, euthymic affect Principal Diagnosis Intertrochanteric fracture of femur status post open reduction and internal fixation with nail 02/06/2022 Hiatal hernia Mild Pul edema, likely iatrogenic Discharge Exam GENERAL: Alert and oriented x3. NAD, on RA. Lean and thin appearance HEENT: No pallor, no icterus. Pupils equal, round and reactive to light. Oral mucosa moist. NECK: No JVD, no neck masses. HEART: S1 and S2 heard. Regular rate and rhythm. No murmur, no gallop. RESPIRATORY SYSTEM: Normal AP diameter. No accessory muscle use. No wheezing, b/l crackles improved in PM from AM exam. ABDOMEN: Soft, bowel sounds present, nontender, no distention. CENTRAL NERVOUS SYSTEM: No facial droop. Speech is clear. Obeys simple commands. Moves extremities. EXTREMITIES: No edema, no erythema seen. Rt hip with clean dressing without soakage noted. Distal NV status wnl. Discharge Data Allergies Allergy/AdvReac Type Severity Reaction Status Date / Time No Known Drug Allergies Allergy ` Verified 02/05/22 17:27 Consultations 02/05/22 16:32 ED Decision to Admit Stat 02/05/22 20:58 Consult Anesthesiology Routine Consult Cardiology Routine Consult Orthopedic Surgery Routine Procedures Performed Operation Date: 02/06/22 14:05 Actual Procedures p Right Trochanteric Femoral Nail(Right) - Pastor Royal DO Ordered Studies 02/05/22 15:21 CT head/brain wo con Stat 02/06/22 15:00 FL hip RT 2-3V Routine Hospital Course (1) Intertrochanteric fracture of femur: 66-year-old gentleman who had hiatal hernia status post repair in October 2021 per patient, was managed for the following while in hospital: (1) Intertrochanteric fracture of femur: Plan: Patient presenting after mechanical fall while bowling Admitting X-ray shows Intratrochanteric fracture of the right femur Ortho consult -status post ORIF and nailing 02/06/2022. Follow-up with Ortho in 10 to 14 days after surgery. On Eliquis, okay from orthopedics point of view. Postoperative Hb fairly stable close to 10. Follow-up with CBC in 3 to 5 days upon discharge. #. Hiatal hernia Large hiatal hernia upon imaging, patient reports laparoscopic surgery in October 2021 Patient made aware, patient to follow-up with same surgery team at [facility]. #. Likely iatrogenic mild pulmonary edema Secondary to IV fluid resuscitation surrounding operative procedure. Given a dose of Lasix in the morning, crackles improving in repeat exam in afternoon. Patient to take small dose of Lasix today evening and tomorrow morning, will need further evaluation by outpatient doctor. Patient to continue with incentive spirometer as discussed at the bedside. #. Leukocytosis Patient does have history of elevated white blood cell count looking at his prior records WBC elevated at 22,000 today. Pro-Tam was negative, patient denies any increased cough. The elevation in WBC could be due to acute stress he is going through currently. Patient with baseline cough with minimal to no sputum production. Patient made aware to contact DrTing If worsening cough or worsening sputum production. Patient afebrile while in hospital, hence no antibiotic at this time. (2) Paroxysmal atrial fibrillation: Plan: Currently in NSR Rate controlled on diltiazem, anticoagulated on Eliquis. On Eliquis. (3) HTN (hypertension): Plan: BP controlled, continue amlodipine and diltiazem (4) CKD (chronic kidney disease), stage III: Plan: Baseline creatinine runs in the high 1s Creatinine WNL Monitor renal functions as appropriate. (5) DVT prophylaxis: Plan: Eliquis from evening. Patient being discharged to [facility] with following instruction at the point of discharge: Follow-up with your primary care physician in a week time. Follow-up with your orthopedics in 1 to 2 weeks upon discharge. You will be discharged on few days worth of pain medication, you will have to follow-up with your primary care physician for ongoing evaluation and pain management prescription if needed. For concern of likely fluid overload after IV fluid resuscitation after surgery, please take small dose of Lasix 1 tablet today evening at 5 PM and another tomorrow morning at 9 AM as discussed at the bedside. If any concern of increasing cough or productive sputum, please contact your PCP/ immediately. Continue to do incentive spirometry for a week upon discharge as discussed at the bedside. As discussed at the bedside, for your hiatal hernia you will need to follow-up with your prior surgeon team at [facility]. Get your blood work CBC and BMP done in 3 to 5 days upon discharge. Continue with your blood thinner. Take medications as prescribed. Total Time Total Time Spent Total Time Spent (In Minutes): 40 Discharge Plan Discharge Items Patient Disposition: Transfer Inpatient Rehab Fac Reason For Visit: RIGHT INTERTROCH FRACTURE Discharge Diagnosis: Intertrochanteric fracture of femur status post open reduction and internal fixation with nail 02/06/2022 Hiatal hernia Mild Pul edema, likely iatrogenic Activity: Per Instructions section Weightbearing: Right weightbearing Weightbearing Comment: as tolerated with walker Non-emergency contact: Surgeon Call non-emergency contact if: your pain is not controlled, your temperature is above 101.5, your wound has increased redness and your wound has increased drainage Follow-up/Referrals: Pastor Royal DO [Surgeon] - (Follow up in 14 days from the day of surgery for staple removal and wound check. ) Padilla Loja DO [Primary Care Provider] - Janet Atwood CRNP [Nurse Practitioner] - (Follow up in 6 weeks for osteoporosis check up. ) Diet: Regular Addtl Attending Provider Instructions: Follow-up with your primary care physician in a week time. Follow-up with your orthopedics in 1 to 2 weeks upon discharge. You will be discharged on few days worth of pain medication, you will have to follow-up with your primary care physician for ongoing evaluation and pain management prescription if needed. For concern of likely fluid overload after IV fluid resuscitation after surgery, please take small dose of Lasix 1 tablet today evening at 5 PM and another tomorrow morning at 9 AM as discussed at the bedside. If any concern of increasing cough or productive sputum, please contact your PCP/Dr. immediately. Continue to do incentive spirometry for a week upon discharge as discussed at the bedside. As discussed at the bedside, for your hiatal hernia you will need to follow-up with your prior surgeon team at [facility]. Get your blood work CBC and BMP done in 3 to 5 days upon discharge. Continue with your blood thinner. Take medications as prescribed. Addtl Advertising Manager Provider Instructions: [facility] DISCHARGE INSTRUCTIONS: HIP FRACTURE SELF CARE INSTRUCTIONS: A. You are to ambulate with a walker or crutches for approximately 6 weeks. B. You are WEIGHT BEARING TOLERATED on your operative lower extremity for at least 6 weeks. C. Wear low heeled shoes with non-slip soles D. Be sure that your floors are free of things that could trip you throw rugs, electrical cords, and small objects. Avoid wet and waxed floors, especially with crutches/walker/cane. E. Try to walk several times a day with rest periods between. F. You may shower 48 hours after surgery and get the incision area wet, but DO NOT soak or submerge incision area in water. (No baths, swimming pools, hot tubs) G. You may have a large, band-aid like dressing over your incision (Aquacel). This will remain on your incision for 7 days, and then can be removed. You CAN shower with this on. If incision is leaking through the dressing, please call the office . H. Do NOT apply soap or any ointment/lotions directly over incision. I. You may use ice as needed to operative site. SPECIAL CARE INSTRUCTIONS: VERY IMPORTANT TO READ AND REVIEW A. You may be at risk for phlebitis or blood clots. a. Wear surgical stockings (MINDY hose) for 2 weeks after surgery to improve circulation and reduce swelling. b. RESUME ELIQUIS 2.5MG PO TWICE DAILY or as directed. This is your blood thinner. B. There are a few signs you need to watch for after you are home. Call [facility] at [phone] if you experience any of the following: a. If you have a temperature of 101 degrees or higher. b. Sudden increase in pain in your hip not relieved by rest or pain medication. c. Any fluid or drainage from the incision; redness of the incision. d. Shortness of breath or chest pain. . C. Call your physician if: a. Temperature is greater than 101 degrees (F). b. Pain is not relieved by prescribed pain medications. c. Increase drainage or redness from incision. d. Unanswered questions or concerns. D. Pain Medication: a. You will be prescribed pain medication upon discharge that should last till your first post-operative appointment. b. If you experience nausea and/or skin rash, discontinue this medication and contact our office for an alternative medication. c. Caution- narcotic pain medication can cause constipation. FOLLOW UP VISIT: Please call [facility] at [phone] to schedule a follow up appointment 10-14 days from the date of your surgery date. Pending Studies at Discharge: No Stand-Alone Forms: My [facility] [place] Skilled Items Patient informed of condition?: Yes DNR: No Discharge Level of Care: Acute rehab Communicable Disease: No Discharge Prognosis: Stable Lines: None Urinary Catheter: No Medications and DC Order Prescriptions: New nicotine [Nicoderm CQ] 21 mg/24 hr patch 24 hour 1 patch transdermal DAILY Qty: 28 RF: 0 acetaminophen 650 mg tablet extended release 650 mg PO Q8H PRN (Reason: fever or pain) Qty: 30 RF: 0 oxycodone 5 mg tablet 5 mg PO Q6H PRN (Reason: pain (scale score 7-10)) Qty: 12 RF: 0 sennosides-docusate sodium [Senokot-S] 8.6-50 mg tablet 2 tab-cap PO HS 7 Days Qty: 14 RF: 0 furosemide [Lasix] 20 mg tablet 20 mg PO DAILY 2 Days Qty: 2 RF: 0 Continued ondansetron HCl 4 mg tablet 4 mg PO Q8 PRN (Reason: Nausea) RF: 0 diltiazem HCl [Tiadylt ER] 240 mg capsule,extended release 24 hr 240 mg PO DAILY RF: 0 amlodipine 2.5 mg tablet 2.5 mg PO DAILY RF: 0 Men 50 Plus Multivitamin 300-600-300 mcg Tablet 1 tab PO DAILY RF: 0 Eliquis 2.5 mg tablet 2.5 mg PO BID RF: 0 Probiotic 3 billion cell Capsule 0 mmu cells PO TID RF: 0 sildenafil 100 mg tablet 100 mg PO DIRECTED PRN (Reason: BEFORE SEX) RF: 0 saw palmetto 1,000 mg Capsule 1,000 mg PO DAILY RF: 0 Discharge Orders: Discharge Order (Routine); Ordered 02/08/22 Ordered By: Gianluca Ryan Admission Data Admit Date/Time: 02/05/22 16:56 Attending Provider: Gianluca Ryan Admit Provider: Ramona Jean Primary Care Provider: Padilla Loja V. Other [facility]: [facility] ; Ramona Jean ; Samuel White ; Alberto Garces ; Pastor Royal Other Interventions: Discharge Summary Assessment (RN) Last Done: 02/08/22 10:06
[2022-02-08] MEDS: oxyCODONE HCL IR 5 MG TAB (IMMEDIATE RELEASE) PO PRN (14:41)
--- NOTE | 2022-02-14 08:51 | Coding Query ---
CODING QUERY To promote full compliance with coding requirements relating to patient care, provider participation is requested in all cases of rural mail contractor uncertainty. Please assist us with the question(s) below: Coding Question(s): The Discharge Summary documents, " Likely iatrogenic mild pulmonary edema Secondary to IV fluid resuscitation surrounding operative procedure. Given a dose of Lasix in the morning, crackles improving in repeat exam in afternoon. Patient to take small dose of Lasix today evening and tomorrow morning, will need further evaluation by outpatient doctor. Patient to continue with incentive spirometer as discussed at the bedside.". Please specify below, regarding the Pulmonary Edema. ( ) Likely Mild Acute Pulmonary Edema ( ) Likely Mild Chronic or Unspecified Pulmonary Edema ( x ) Other: Please Specify____likely iatrogenic mild acute pulmonary edema Physician's Response(s): Thank you Chelsea Aguilar Principal Diagnosis: "that condition established after study, to be chiefly responsible for occasioning the admission of the patient to the hospital for care." Co-Existing Principal Diagnosis: "when two or more diagnoses equally meet the criteria for principal diagnosis as determined by the circumstances of admission, diagnostic work up, and/or therapy provided, and the Alphabetic Index, Tabular List, or another coding guideline does not provide sequencing direction, any one of the diagnoses may be sequenced first." "When the physician has documented what appears to be a current diagnosis in the body of the record, but has not included the diagnosis in the final diagnostic statement, the physician should be asked whether the diagnosis should be added." (Source Coding Clinic 2 QTR90. p3-4) ANA
== END 2022-02-08 15:20 | DRG 480 ==
LOC: ED 15:03 → 3W 16:56 → SUATTDRO 16:56 → 3W 20:41